=== PATIENT | male | born 1960 | race American Indian/Alaskan Native ===

== ENCOUNTER 2019-07-04 12:21 | Emergency (ER) | payer MEDICARE ==
[2019-07-04] MEDS ORDERED: ACETAMINOPHEN W/CODEINE 300-30 MG TAB PO ONE (14:42)
[2019-07-04] MEDS ORDERED: IBUPROFEN 800 MG TAB ONE (14:58)
[2019-07-04] MEDS ORDERED: IBUPROFEN 800 MG TAB PO ONE (15:01)
--- NOTE | 2019-07-04 15:20 | Emergency Department Report ---
Minor Respiratory - HPI Chief Complaint: Upper Respiratory Infection Stated Complaint: SOB Time Seen by Provider: 07/04/19 14:14 Duration: 4 Days Pain Location: Throat, Chest Severity: moderate Minor Respiratory: Yes Able to Tolerate Fluids, Yes Chest Pain, Yes Shortness of Breath, No Rhinorrhea, No Sore Throat, No Ear Pain, No Cough, No Sick Contacts, No Hemoptysis, No Fever Other History: This is a 59-year-old male with a history of congestive heart failure and hypertension who takes medication daily presents ED complaining of chest pain with coughing and some shortness of breath that worsens with laying down. Patient states that he was seen by his primary care doctor 2 days ago and was given some antibiotics which he is currently taking. Patient states he has had no relief with his antibiotics. ED Review of Systems ROS: Stated complaint: SOB Other details as noted in HPI Comment: All other systems reviewed and negative ED Past Medical Hx - Social History Smoking Status: Unknown if ever smoked Substance Use Type: None - Medications Home Medications: Home Medications Medication Instructions Recorded Confirmed Last Taken Type Bumetanide [Bumetanide 2 mg tab] 2 mg PO BID #20 tab 07/04/19 Unknown Rx Minor Respiratory Exam - Exam General: Vital signs noted. No distress. Alert and acting appropriately. HEENT: Yes Moist Mucous Membranes, No Pharyngeal Erythema, No Pharyngeal Exudates, No Rhinorrhea, No Conjuctival Injection, No Frontal Tenderness, No Maxillary Tenderness Ear: Neither TM Bulge, Neither TM Erythema, Neither EAC Pain, Neither EAC Discharge Neck: Yes Supple, No Adenopathy Lungs: Yes Good Air Exchange, No Wheezes, No Ronchi, No Stridor, No Cough, No Labored Respirations, No Retractions, No Use of Accessory Muscles, No Other Abn ormal Lung Sounds Heart: Yes Regular, No Murmur Abdomen: Yes Normal Bowel Sounds, No Tenderness, No Peritoneal Signs Skin: No Rash, No Edema Neurologic: Alert and oriented, no deficits. Musculoskeletal: Unremarkable. ED Course Vital Signs 07/04/19 15:02 Temperature 97.8 F Pulse Rate 98 H Respiratory 20 Rate Blood Pressure 144/99 O2 Sat by Pulse 98 Oximetry ED Medical Decision Making - Lab Data Result diagrams: 07/04/19 14:51 07/04/19 14:51 Laboratory Last Values WBC 3.8 K/mm3 (4.5-11.0) L 07/04/19 14:51 RBC 4.38 M/mm3 (3.65-5.03) 07/04/19 14:51 Hgb 14.3 gm/dl (11.8-15.2) 07/04/19 14:51 Hct 43.0 % (35.5-45.6) 07/04/19 14:51 MCV 98 fl (84-94) H 07/04/19 14:51 MCH 33 pg (28-32) H 07/04/19 14:51 MCHC 33 % (32-34) 07/04/19 14:51 RDW 12.5 % (13.2-15.2) L 07/04/19 14:51 Plt Count 138 K/mm3 (140-440) L 07/04/19 14:51 Lymph % (Auto) 29.0 % (13.4-35.0) 07/04/19 14:51 [place] % (Auto) 11.5 % (0.0-7.3) H 07/04/19 14:51 Eos % (Auto) 3.1 % (0.0-4.3) 07/04/19 14:51 Baso % (Auto) 0.6 % (0.0-1.8) 07/04/19 14:51 Lymph # 1.1 K/mm3 (1.2-5.4) L 07/04/19 14:51 [place] # 0.4 K/mm3 (0.0-0.8) 07/04/19 14:51 Eos # 0.1 K/mm3 (0.0-0.4) 07/04/19 14:51 Baso # 0.0 K/mm3 (0.0-0.1) 07/04/19 14:51 Seg Neutrophils % 55.8 % (40.0-70.0) 07/04/19 14:51 Seg Neutrophils # 2.1 K/mm3 (1.8-7.7) 07/04/19 14:51 Sodium 138 mmol/L (137-145) 07/04/19 14:51 Potassium 4.3 mmol/L (3.6-5.0) 07/04/19 14:51 Chloride 102.1 mmol/L (98-107) 07/04/19 14:51 Carbon Dioxide 21 mmol/L (22-30) L 07/04/19 14:51 Anion Gap 19 mmol/L 07/04/19 14:51 BUN 20 mg/dL (9-20) 07/04/19 14:51 Creatinine 1.1 mg/dL (0.8-1.5) 07/04/19 14:51 Estimated GFR > 60 ml/min 07/04/19 14:51 BUN/Creatinine Ratio 18 % 07/04/19 14:51 Glucose 160 mg/dL (75-100) H 07/04/19 14:51 Calcium 9.1 mg/dL (8.4-10.2) 07/04/19 14:51 Total Creatine Kinase 168 units/L (55-170) 07/04/19 16:45 Troponin T < 0.010 ng/mL (0.00-0.029) 07/04/19 16:45 NT-Pro-B Natriuret Pep 2140 pg/mL (0-900) H 07/04/19 15:40 - EKG Data EKG shows normal: sinus rhythm Rate: normal - EKG Data Interpretation: no acute changes, LVH, other (Probably left atrial enlargement) - Radiology Data Radiology results: report reviewed, image reviewed Fluoro Time In Minutes: CHEST 2 VIEWS INDICATION: pain. COMPARISON: None FINDINGS: Support devices: None. Heart: Mild cardiomegaly. Lungs/pleura: Mild pulmonary venous congestion. Trace pleural effusions are identified on the lateral image. No infiltrate or pneumothorax. Additional findings: None IMPRESSION: Mild CHF. Signer Name: Lei Heath Jr, MD Signed: 07/04/2019 3:30 PM Workstation Name: [id number] Transcribed By: TTR Dictated By: LEI HEATH JR, MD Electronically Authenticated By: LEI HEATH JR, MD Signed Date/Time: 07/04/19 1530 DD/ 1507 TD/TT: - Medical Decision Making 59-year-old male with a history of CHF presents with shortness of breath and chest pain. All labs were completed. Troponin negative CK negative proBNP elevated but this could be a normal elevation for the patient. Patient given Bumex IV in the ED. And some pain medication. Patient performing moderately better in the ED. Discussed with patient to take his Bumex at home regularly and take it twice leo ly for the next 3 days. Discussed patient to follow-up with primary care physician. I discussed with patient if he has any worsening pain or shortness of breath or any symptoms return to ED immediately. Case discussed with Dr. DEN Cruz attending physician who evaluated patient as well. He recommended patient to be discharged given lab findings and patient's symptoms not worsening. Critical care attestation.: If time is entered above; I have spent that time in minutes in the direct care of this critically ill patient, excluding procedure time. ED Disposition Clinical Impression: Acute dyspnea, History of congestive heart failure, Pleural effusion due to congestive heart failure Disposition: - TO HOME OR SELFCARE Is pt being admited?: No Does the pt Need Aspirin: No Condition: Stable Instructions: Heart Failure (ED), Dyspnea (ED) Additional Instructions: Make sure to follow up with the yarn texture machine operator as well as her primary care physician as discussed. Take all your medications as you've been prescribed. If you have any worsening symptoms or develop new symptoms please return to ED immediately. Prescriptions: Bumetanide [Bumetanide 2 mg tab] 2 mg PO BID #20 tab Referrals: SANAZ KENNY MD [Primary Care Provider] - 3-5 Days Forms: Accompanied Note, Work/School Release Form(ED) Time of Disposition: 17:56
[2019-07-04 15:23] LABS: BUN/Creatinine Ratio 18; Blood Urea Nitrogen 20 mg/dL (9-20); Calcium 9.1 mg/dL (8.4-10.2); Hemolysis Index 6
--- NOTE | 2019-07-04 15:35 | XRay Report ---
CHEST 2 VIEWS INDICATION: pain. COMPARISON: None FINDINGS: Support devices: None. Heart: Mild cardiomegaly. Lungs/pleura: Mild pulmonary venous congestion. Trace pleural effusions are identified on the lateral image. No infiltrate or pneumothorax. Additional findings: None IMPRESSION: Mild CHF. Signer Name: Lei Bunch Jr, MD Signed: 07/04/2019 3:30 PM Workstation Name: [id number]
[2019-07-04 15:42] LABS: Basophils % (Auto) 0.6 % (0.0-1.8); Eosinophils # (Auto) 0.1 K/mm3 (0.0-0.4); Eosinophils % (Auto) 3.1 % (0.0-4.3); Hemoglobin 14.3 gm/dl (11.8-15.2); Lymphocytes # (Auto) 1.1 K/mm3 (1.2-5.4); Mean Corpuscular HGB Conc 33 % (32-34); Mean Corpuscular Volume 98 fl (84-94); Monocytes # (Auto) 0.4 K/mm3 (0.0-0.8); Monocytes % (Auto) 11.5 % (0.0-7.3); Platelet Count 138 K/mm3 (140-440); Red Blood Count 4.38 M/mm3 (3.65-5.03); Red Cell Distribution Width 12.5 % (13.2-15.2)
[2019-07-04] MEDS ORDERED: BUMETANIDE 1 MG/4 ML INJ IV ONE ×2 (16:56→17:00)
--- NOTE | 2019-07-04 17:04 | Event Note ---
Face to Face: For this encounter I have reviewed the PA/HIGHWAY TECHNICIAN documentation, treatment plan, medical decision making, and I had face to face time with this patient. I did have a [id number] with this patient. Patient has some mild shortness of breath and chest discomfort. States the chest discomfort usually is only when he is fluid overloaded. Shortness of breath is exertional. He denies any current fevers. Chest x-ray shows some pulmonary vascular congestion and cardiomegaly. Patient admits that he only uses his Bumex when his leg swelling he feels as though he is overloaded. He was able to take 1 but states that the symptoms continued to progress. Patient will be given some IV Bumex and will be monitored here in the emergency department. I anticipate patient being discharged home.
[2019-07-04 18:44] VITALS: BP 143/92
== END 2019-07-04 18:42 | disposition home or self-care (01) ==
LOC: ED 12:21
DX: R06.00 Dyspnea, unspecified (principal); I50.9 Heart failure, unspecified; J90 Pleural effusion, not elsewhere classified; Z88.6 Allergy status to analgesic agent; Z88.0 Allergy status to penicillin
CPT/HCPCS: 36415; 71046; 80048; 82550; 83880; 84484; 85025; 93005; 93010; 96374

== ENCOUNTER 2019-12-20 22:55 | Inpatient (IN) | payer MEDICARE ==
[2019-12-20] MEDS ORDERED: FUROSEMIDE 40 MG/4 ML INJ IV ONE (22:58)
[2019-12-20] MEDS ORDERED: NITROGLYCERIN DRIP 50 MG/250 ML BOTTLE IV SCH (23:00)
--- NOTE | 2019-12-20 23:37 | XRay Report ---
CHEST 1 VIEW, 12/20/2019 10:17 PM CLINICAL INFORMATION/INDICATION: Respiratory distress COMPARISON: Chest radiograph, 07/04/2019 FINDINGS: SUPPORT DEVICES: None. HEART: There is stable moderate enlargement of the cardiac silhouette. LUNGS/PLEURA: Diffuse bilateral mixed interstitial and airspace disease is noted with probable small bilateral pleural effusions. ADDITIONAL FINDINGS: No additional acute findings. IMPRESSION: 1. Mixed interstitial and airspace disease favored to represent pulmonary edema with probable small b ilateral pleural effusions. 2. Stable enlargement of the cardiac silhouette. Signer Name: Chichi Rubi MD Signed: 12/20/2019 11:32 PM Workstation Name: [id number]
[2019-12-21 00:22] LABS: Bacteria,Urine 1+ /HPF (Negative); Bilirubin,Urine NEG (Negative); Blood,Urine MOD (Negative); Color,Urine Yellow (Yellow); Mucus,Urine 2+ /HPF; Urobilinogen,Urine < 2.0 mg/dL (<2.0)
[2019-12-21 00:26] LABS: Albumin 4.4 g/dL (3.9-5); Calcium 9.4 mg/dL (8.4-10.2)
[2019-12-21 00:32] LABS: Basophils # (Auto) 0.1 K/mm3 (0.0-0.1); Basophils % (Auto) 1.1 % (0.0-1.8); Eosinophils # (Auto) 0.1 K/mm3 (0.0-0.4); Eosinophils % (Auto) 1.8 % (0.0-4.3); Hematocrit 44.7 % (35.5-45.6); Hemoglobin 15.1 gm/dl (11.8-15.2); Lymphocytes # (Auto) 1.5 K/mm3 (1.2-5.4); Lymphocytes % (Auto) 32.6 % (13.4-35.0); Mean Corpuscular HGB Conc 34 % (32-34); Mean Corpuscular Volume 98 fl (84-94); Monocytes # (Auto) 0.3 K/mm3 (0.0-0.8); Monocytes % (Auto) 6.5 % (0.0-7.3); Platelet Count 159 K/mm3 (140-440); Red Blood Count 4.57 M/mm3 (3.65-5.03); Red Cell Distribution Width 12.8 % (13.2-15.2)
--- NOTE | 2019-12-21 00:47 | Emergency Department Report ---
ED General Adult HPI - General Chief complaint: Dyspnea/Respdistress Stated complaint: MARIALUISA Time Seen by Provider: 12/20/19 22:56 Source: patient, EMS Mode of arrival: Stretcher Limitations: No Limitations - History of Present Illness Initial comments: Patient is a 59-year-old F Luxembour[place] male with a past medical history of congestive heart failure with shortness of breath. Patient is a poor historian secondary to being in respiratory distress. Patient is only able to shake his head yes or no. Patient does acknowledge that he became short of breath today. States he has been compliant with his medications. Patient states he has not been compliant with his diet and has had salty food in the last several days. Paramedics were called and the patient was in tripod position and was hypoxic into the 80s. Patient was started on CPAP and brought to the hospital. Severity scale (0 -10): 0 - Related Data Previous Rx's Medication Instructions Recorded Last Taken Type Bumetanide [Bumetanide 2 mg tab] 2 mg PO BID #20 tab 07/04/19 Unknown Rx Allergies Allergy/AdvReac Type Severity Reaction Status Date / Time codeine Allergy Unknown Verified 07/04/19 14:55 meperidine [From Demerol] Allergy Swelling Verified 07/04/19 14:55 Penicillins Allergy Swelling Verified 07/04/19 14:55 ED Review of Systems ROS: Stated complaint: MARIALUISA Other details as noted in HPI Comment: All other systems reviewed and negative ED Past Medical Hx - Past Medical History Previous Medical History?: Yes Hx Hypertension: Yes Hx Congestive Heart Failure: Yes Hx COPD: Yes Additional medical history: High Cholesterol, Sleep Apnea - Social History Smoking Status: Never Smoker - Medications Home Medications: Home Medications Medication Instructions Recorded Confirmed Last Taken Type Bumetanide [Bumetanide 2 mg tab] 2 mg PO BID #20 tab 07/04/19 Unknown Rx ED Physical Exam - General Limitations: No Limitations General appearance: alert, in distress - Head Head exam: Present: atraumatic, normocephalic - Eye Eye exam: Present: normal appearance, PERRL, EOMI - ENT ENT exam: Present: mucous membranes moist - Neck Neck exam: Present: normal inspection - Respiratory Respiratory exam: Present: respiratory distress, rales, rhonchi, accessory mus roxy use, other (tripod position). Absent: normal lung sounds bilaterally, wheezes - Cardiovascular Cardiovascular Exam: Present: normal rhythm, tachycardia. Absent: systolic murmur, diastolic murmur, rubs, gallop - GI/Abdominal GI/Abdominal exam: Present: soft, normal bowel sounds. Absent: distended, tenderness, guarding, rebound - Rectal Rectal exam: Present: deferred - Extremities Exam Extremities exam: Present: normal inspection, other (+1 briana) - Back Exam Back exam: Present: normal inspection - Neurological Exam Neurological exam: Present: alert, oriented X3 - Psychiatric Psychiatric exam: Present: normal affect, normal mood - Skin Skin exam: Present: warm, dry, intact, normal color. Absent: rash ED Course Vital Signs 12/20/19 12/20/19 12/20/19 23:19 23:31 23:38 Temperature 98.2 F Pulse Rate 93 H Respiratory 20 22 22 Rate Blood Pressure 132/83 [Right] O2 Sat by Pulse 100 98 98 Oximetry 12/21/19 00:23 Temperature Pulse Rate 77 Respiratory 20 Rate Blood Pressure 92/61 [Right] O2 Sat by Pulse 94 Oximetry ED Medical Decision Making - Lab Data Result diagrams: 12/20/19 23:07 12/21/19 Unknown Lab Results 12/20/19 12/20/19 12/20/19 Range/Units 23:07 23:07 23:07 WBC 4.5 (4.5-11.0) K/mm3 RBC 4.57 (3.65-5.03) M/mm3 Hgb 15.1 (11.8-15.2) gm/dl Hct 44.7 (35.5-45.6) % MCV 98 H (84-94) fl MCH 33 H (28-32) pg MCHC 34 (32-34) % RDW 12.8 L (13.2-15.2) % Plt Count 159 (140-440) K/mm3 Lymph % (Auto) 32.6 (13.4-35.0) % [place] % (Auto) 6.5 (0.0-7.3) % Eos % (Auto) 1.8 (0.0-4.3) % Baso % (Auto) 1.1 (0.0-1.8) % Lymph # 1.5 (1.2-5.4) K/mm3 [place] # 0.3 (0.0-0.8) K/mm3 Eos # 0.1 (0.0-0.4) K/mm3 Baso # 0.1 (0.0-0.1) K/mm3 Seg Neutrophils % 58.0 (40.0-70.0) % Seg Neutrophils # 2.6 (1.8-7.7) K/mm3 APTT 27.7 (24.2-36.6) Sec. Sodium (137-145) mmol/L Potassium (3.6-5.0) mmol/L Chloride (98-107) mmol/L Carbon Dioxide (22-30) mmol/L Anion Gap mmol/L BUN (9-20) mg/dL Creatinine (0.8-1.3) mg/dL Estimated GFR ml/min BUN/Creatinine Ratio % Glucose (75-100) mg/dL Lactic Acid (0.7-2.0) mmol/L Calcium (8.4-10.2) mg/dL Total Bilirubin (0.1-1.2) mg/dL AST (5-40) units/L ALT (7-56) units/L Alkaline Phosphatase (35-129) units/L Troponin T (0.00-0.029) ng/mL NT-Pro-B Natriuret Pep 5920 H (0-900) pg/mL Total Protein (6.3-8.2) g/dL Albumin (3.9-5) g/dL Albumin/Globulin Ratio % Urine Color (Yellow) Urine Turbidity (Clear) Urine pH (5.0-7.0) Ur Specific [place] (1.003-1.030) Urine Protein (Negative) mg/dL Urine Glucose (UA) (Negative) mg/dL Urine Ketones (Negative) mg/dL Urine Blood (Negative) Urine Nitrite (Negative) Urine Bilirubin (Negative) Urine Urobilinogen (<2.0) mg/dL Ur Leukocyte Esterase (Negative) Urine WBC (Auto) (0.0-6.0) /HPF Urine RBC (Auto) (0.0-6.0) /HPF U Epithel Cells (Auto) (0-13.0) /HPF Urine Bacteria (Auto) (Negative) /HPF Urine Mucus /HPF 12/21/19 12/21/19 12/21/19 Range/Units Unknown Unknown Unknown WBC (4.5-11.0) K/mm3 RBC (3.65-5.03) M/mm3 Hgb (11.8-15.2) gm/dl Hct (35.5-45.6) % MCV (84-94) fl MCH (28-32) pg MCHC (32-34) % RDW (13.2-15.2) % Plt Count (140-440) K/mm3 Lymph % (Auto) (13.4-35.0) % [place] % (Auto) (0.0-7.3) % Eos % (Auto) (0.0-4.3) % Baso % (Auto) (0.0-1.8) % Lymph # (1.2-5.4) K/mm3 [place] # (0.0-0.8) K/mm3 Eos # (0.0-0.4) K/mm3 Baso # (0.0-0.1) K/mm3 Seg Neutrophils % (40.0-70.0) % Seg Neutrophils # (1.8-7.7) K/mm3 APTT (24.2-36.6) Sec. Sodium 139 (137-145) mmol/L Potassium 3.9 (3.6-5.0) mmol/L Chloride 100.9 (98-107) mmol/L Carbon Dioxide 19 L (22-30) mmol/L Anion Gap 23 mmol/L BUN 25 H (9-20) mg/dL Creatinine 1.6 H (0.8-1.3) mg/dL Estimated GFR 53 ml/min BUN/Creatinine Ratio 16 % Glucose 246 H (75-100) mg/dL Lactic Acid 3.20 H* (0.7-2.0) mmol/L Calcium 9.4 (8.4-10.2) mg/dL Total Bilirubin 0.50 (0.1-1.2) mg/dL AST 24 (5-40) units/L ALT 14 (7-56) units/L Alkaline Phosphatase 64 (35-129) units/L Troponin T 0.022 (0.00-0.029) ng/mL NT-Pro-B Natriuret Pep (0-900) pg/mL Total Protein 8.2 (6.3-8.2) g/dL Albumin 4.4 (3.9-5) g/dL Albumin/Globulin Ratio 1.2 % Urine Color Yellow (Yellow) Urine Turbidity Clear (Clear) Urine pH 5.0 (5.0-7.0) Ur Specific [place] 1.016 (1.003-1.030) Urine Protein 100 mg/dl (Negative) mg/dL Urine Glucose (UA) Neg (Negative) mg/dL Urine Ketones Neg (Negative) mg/dL Urine Blood Mod (Negative) Urine Nitrite Neg (Negative) Urine Bilirubin Neg (Negative) Urine Urobilinogen < 2.0 (<2.0) mg/dL Ur Leukocyte Esterase Neg (Negative) Urine WBC (Auto) 1.0 (0.0-6.0) /HPF Urine RBC (Auto) 3.0 (0.0-6.0) /HPF U Epithel Cells (Auto) < 1.0 (0-13.0) /HPF Urine Bacteria (Auto) 1+ (Negative) /HPF Urine Mucus 2+ /HPF - Radiology Data [facility] [address] [place] [address] XRay Report Signed Patient: CATALINA BARTON MR#: [id number] : 1960 Acct:[id number] Age/Sex: 59 / M ADM Date: 12/20/19 Loc: ED Attending Dr: Ordering Physician: MUKUL BALLARD MD Date of Service: 12/20/19 Procedure(s): XR chest 1V ap Accession Number(s): [id number] cc: MUKUL BALLARD MD Fluoro Time In Minutes: CHEST 1 VIEW, 12/20/2019 10:17 PM CLINICAL INFORMATION/INDICATION: Respiratory distress COMPARISON: Chest radiograph, 07/04/2019 FINDINGS: SUPPORT DEVICES: None. HEART: There is stable moderate enlargement of the cardiac silhouette. LUNGS/PLEURA: Diffuse bilateral mixed interstitial and airspace disease is noted with probable small bilateral pleural effusions. ADDITIONAL FINDINGS: No additional acute findings. IMPRESSION: 1. Mixed interstitial and airspace disease favored to represent pulmonary edema with probable small bilateral pleural effusions. 2. Stable enlargement of the cardiac silhouette. Signer Name: Chichi Rubi MD Signed: 12/20/2019 11:32 PM Workstation Name: [id number] - Medical Decision Making Patient is a 59-year-old F Luxembour[place] male who is presenting respiratory distress. Paramedics were worried that the patient may need to be intubated on arrival. Patient is stated that he wanted to try BiPAP. Patient was placed on BiPAP and started on a nitroglycerin drip. Blood pressure was elevated in the 170s systolic. Blood pressure decreased and the patient states he is feeling much improved by the time that the patient's laboratory studies returned. Laboratory studies are consistent with a congestive heart failure exacerbation. Patient's BNP is elevated. Troponin is within normal limits. Patient will be admitted to the hospitalist service for further management. Critical Care Time: Yes (30) Critical care attestation.: If time is entered above; I have spent that time in minutes in the direct care of this critically ill patient, excluding procedure time. ED Disposition Clinical Impression: Acute exacerbation of congestive heart failure, Acute respiratory distress Disposition: OP ADMIT IP TO THIS HOSP Is pt being admited?: Yes Does the pt Need Aspirin: No Condition: Stable Time of Disposition: 00:54
[2019-12-21] MEDS ORDERED: ONDANSETRON 4 MG/2 ML INJ IV PRN (01:18)
[2019-12-21] MEDS ORDERED: MAGNESIUM HYDROXIDE (MOM) ORAL LIQD UDC PO PRN (01:18)
--- NOTE | 2019-12-21 01:31 | History and Physical Report ---
History of Present Illness Date of examination: 12/21/19 Date of admission: 12/21/2019 Chief complaint: Shortness of Breath History of present illness: Patient is a 59-year-old -Filipino male with known history of congestive heart failure presenting to the emergency room today with shortness of breath. Patient was brought in by EMS because he was in respiratory distress and was said to have been found in the tripod position.. He denies any chest pain, no fever or chills, no nausea vomiting, no abdominal pain, no diarrhea, no headache or dizziness. He denies any sick contacts and no recent travel. Patient admits that he has not been quite compliant with his diet as he has been eating some salty foods over the past few days. He however indicates that he has been compliant with his medications. Patient could not give a very good history because he was in distress. Work-up in the emergency room today reveals pulmonary vascular congestion on the chest x-ray, elevated BNP, patient also has some renal insufficiency. He was tachycardic and hypertensive upon arrival in the emergency room. He was placed on BiPAP and also on nitroglycerin drip. He was diuresed with IV Lasix with some improvement in his shortness of breath. Past History Past Medical History: COPD, heart failure, hypertension, hyperlipidemia, other (Sleep Apnea) Past Surgical History: No surgical history Social history: no significant social history Family history: no significant family history Medications and Allergies Allergies Allergy/AdvReac Type Severity Reaction Status Date / Time codeine Allergy Unknown Verified 07/04/19 14:55 meperidine [From Demerol] Allergy Swelling Verified 07/04/19 14:55 Penicillins Allergy Swelling Verified 07/04/19 14:55 Home Medications Medication Instructions Recorded Confirmed Last Taken Type Bumetanide [Bumetanide 2 mg tab] 2 mg PO BID #20 tab 07/04/19 12/21/19 Unknown Rx Metoprolol [Lopressor] 25 mg PO DAILY 12/21/19 12/21/19 Unknown History Valsartan 80 mg PO DAILY 12/21/19 12/21/19 Unknown History Active Meds: Active Medications Furosemide (Lasix) 40 mg IV BID@0600,1800 CHELI Nitroglycerin/Dextrose (Tridil Drip 50mg/250ml) 50 mg in 250 mls @ 3 mls/hr IV TITR CHELI; Protocol Last Admin: 12/20/19 23:40 Dose: 10 mcg/min, 3 mls/hr Documented by: Magnesium Hydroxide (Milk Of Magnesia) 30 ml PO Q4H PRN PRN Reason: Constipation Ondansetron HCl (Zofran) 4 mg IV Q8H PRN PRN Reason: Nausea And Vomiting Sodium Chloride (Sodium Chloride Flush Syringe 10 Ml) 10 ml IV BID CHELI Sodium Chloride (Sodium Chloride Flush Syringe 10 Ml) 10 ml IV PRN PRN PRN Reason: LINE FLUSH Review of Systems Constitutional: no fever, no chills Ears, nose, mouth and throat: no nasal congestion, no sore throat Cardiovascular: no chest pain, no palpitations Respiratory: shortness of breath, no cough Gastrointestinal: no nausea, no vomiting, no diarrhea Genitourinary Male: no dysuria, no hematuria, no flank pain Musculoskeletal: no neck pain, no low back pain Integumentary: no rash, no pruritis Neurological: no headaches, no confusion Psychiatric: no anxiety, no depression Exam - Constitutional Vitals: Temp Pulse Resp BP Pulse Ox 98.2 F 77 20 92/61 94 12/20/19 23:31 12/21/19 00:23 12/21/19 00:23 12/21/19 00:23 12/21/19 00:23 General appearance: Present: mild distress, well-nourished, obese - EENT Eyes: Present: PERRL, EOM intact ENT: hearing intact, clear oral mucosa, dentition normal - Neck Neck: Present: supple, normal ROM - Respiratory Respiratory effort: normal Respiratory: bilateral: rales - Cardiovascular Rhythm: regular Heart Sounds: Present: S1 & S2. Absent: gallop, systolic murmur, diastolic murmur, rub - Extremities Extremities: no ischemia, pulses intact, pulses symmetrical, No edema, Full ROM Peripheral Pulses: within normal limits - Abdominal General gastrointestinal: Present: soft, non-tender, non-distended, normal bowel sounds. Absent: mass - Integumentary Integumentary: Present: clear, warm, dry. Absent: rash - Musculoskeletal Musculoskeletal: strength equal bilaterally - Psychiatric Psychiatric: appropriate mood/affect, intact judgment & insight, memory intact, cooperative - Neurologic Neurologic: CNII-XII intact, no focal deficits, moves all extremities HEART Score - HEART Score Troponin: Troponin T 0.022 ng/mL (0.00-0.029) 12/21/19 Unknown Results - Labs CBC & Chem 7: 12/20/19 23:07 12/21/19 Unknown Labs: Abnormal lab results 12/20/19 12/20/19 12/21/19 Range/Units 23:07 23:07 Unknown MCV 98 H (84-94) fl MCH 33 H (28-32) pg RDW 12.8 L (13.2-15.2) % Carbon Dioxide 19 L (22-30) mmol/L BUN 25 H (9-20) mg/dL Creatinine 1.6 H (0.8-1.3) mg/dL Glucose 246 H (75-100) mg/dL Lactic Acid (0.7-2.0) mmol/L NT-Pro-B Natriuret Pep 5920 H (0-900) pg/mL 12/21/19 Range/Units Unknown MCV (84-94) fl MCH (28-32) pg RDW (13.2-15.2) % Carbon Dioxide (22-30) mmol/L BUN (9-20) mg/dL Creatinine (0.8-1.3) mg/dL Glucose (75-100) mg/dL Lactic Acid 3.20 H* (0.7-2.0) mmol/L NT-Pro-B Natriuret Pep (0-900) pg/mL Assessment and Plan - Patient Problems (1) Acute exacerbation of congestive heart failure Current Visit: Yes Status: Acute Plan to address problem: Patient admitted and placed on IV diuretics. We will monitor inputs and outputs and also monitor daily weights. Patient will be scheduled for echocardiogram in the a.m. Compliance with diet and medications has been encouraged (2) Renal insufficiency Current Visit: Yes Status: Acute Plan to address problem: There has been an increase in his BUN and creatinine from his previous studies. Will monitor BUN and creatinine. We will place a consult to nephrology for further evaluation and recommendation. (3) DVT prophylaxis Current Visit: Yes Status: Acute (4) Full code status Current Visit: Yes Status: Acute
[2019-12-21] MEDS: FUROSEMIDE 40 MG/4 ML INJ IV SCH (06:52)
--- NOTE | 2019-12-21 10:24 | Consultation ---
History of Present Illness Consult date: 12/21/19 Consult reason: congestive heart failure History of present illness: 59-year-old -[place]ian male with a history of congestive heart failure who normally sees a swatch checker at the [facility] presents today with shortness of breath. Patient states that his been under a lot of stress as his is ill on hospice at home. He denies any chest pains. He was found to have mild interstitial pulmonary edema and has responded to IV diuresing. At the time of my evaluation patient is comfortable but still complains about mild wheezing but no chest pain. Past History Past Medical History: COPD, heart failure, hypertension, hyperlipidemia, other (Sleep Apnea) Past Surgical History: No surgical history Social history: no significant social history Family history: no significant family history Medications and Allergies Allergies Allergy/AdvReac Type Severity Reaction Status Date / Time codeine Allergy Unknown Verified 07/04/19 14:55 meperidine [From Demerol] Allergy Swelling Verified 07/04/19 14:55 Penicillins Allergy Swelling Verified 07/04/19 14:55 Home Medications Medication Instructions Recorded Confirmed Last Taken Type Bumetanide [Bumetanide 2 mg tab] 2 mg PO BID #20 tab 07/04/19 12/21/19 Unknown Rx Metoprolol [Lopressor] 25 mg PO DAILY 12/21/19 12/21/19 Unknown History Valsartan 80 mg PO DAILY 12/21/19 12/21/19 Unknown History Active Meds: Active Medications Furosemide (Lasix) 40 mg IV BID@0600,1800 [facility] Last Admin: 12/21/19 06:52 Dose: 40 mg Documented by: Nitroglycerin/Dextrose (Tridil Drip 50mg/250ml) 50 mg in 250 mls @ 3 mls/hr IV TITR CHELI; Protocol Last Titration: 12/21/19 06:46 Dose: 0 mcg/min, 0 mls/hr Documented by: Magnesium Hydroxide (Milk Of Magnesia) 30 ml PO Q4H PRN PRN Reason: Constipation Ondansetron HCl (Zofran) 4 mg IV Q8H PRN PRN Reason: Nausea And Vomiting Sodium Chloride (Sodium Chloride Flush Syringe 10 Ml) 10 ml IV BID [facility] Last Admin: 12/21/19 09:12 Dose: 10 ml Documented by: Sodium Chloride (Sodium Chloride Flush Syringe 10 Ml) 10 ml IV PRN PRN PRN Reason: LINE FLUSH Review of Systems Constitutional: no weight loss, no fever, no chills, no sweats, no anorexia, no fatigue, no weakness Ears, nose, mouth and throat: no ear pain, no ear discharge, no tinnitis, no nose pain, no epistaxis, no dental pain, no mouth pain Cardiovascular: shortness of breath, dyspnea on exertion, no orthopnea, no palpitations, no edema Respiratory: shortness of breath, sleep apnea, no cough, no congestion, no wheezing Gastrointestinal: no abdominal pain, no nausea, no vomiting, no diarrhea, no melena, no hematochezia Genitourinary Male: no dysuria, no hematuria, no flank pain Musculoskeletal: no neck stiffness, no neck pain, no low back pain, no shooting leg pain Integumentary: no rash, no pruritis Neurological: no head injury, no transient paralysis, no paralysis, no weakness, no parathesias, no seizures Psychiatric: no anxiety, no memory loss Endocrine: no cold intolerance, no heat intolerance, no polydipsia, no polyuria Hematologic/Lymphatic: no easy bruising, no easy bleeding Allergic/Immunologic: no urticaria, no allergic rhinitis, no wheezing Physical Examination Vital Signs Resp Pulse Ox 20 100 12/20/19 23:19 12/20/19 23:19 General appearance: no acute distress, obese HEENT: Positive: PERRL, Mucus Membranes Moist Neck: Positive: neck supple, trachea midline, JVD/HJR Cardiac: Positive: Regular Rate, S1/S2, S3, PMI, Dilated, Laterally Displaced Lungs: Positive: clear to auscultation, No Wheeze, Rales, Rhonchi Neuro: Positive: Grossly Intact Abdomen: Positive: Unremarkable, Soft Skin: Positive: Rash Extremities: Absent: edema Results 12/20/19 23:07 12/21/19 Unknown Cardiac Enzymes 12/21/19 Range/Units Unknown AST 24 (5-40) units/L Coagulation 12/20/19 Range/Units 23:07 APTT 27.7 (24.2-36.6) Sec. CBC 12/20/19 Range/Units 23:07 WBC 4.5 (4.5-11.0) K/mm3 RBC 4.57 (3.65-5.03) M/mm3 Hgb 15.1 (11.8-15.2) gm/dl Hct 44.7 (35.5-45.6) % Plt Count 159 (140-440) K/mm3 Lymph # 1.5 (1.2-5.4) K/mm3 [place] # 0.3 (0.0-0.8) K/mm3 Eos # 0.1 (0.0-0.4) K/mm3 Baso # 0.1 (0.0-0.1) K/mm3 Comprehensive Metabolic Panel 12/21/19 Range/Units Unknown Sodium 139 (137-145) mmol/L Potassium 3.9 (3.6-5.0) mmol/L Chloride 100.9 (98-107) mmol/L Carbon Dioxide 19 L (22-30) mmol/L BUN 25 H (9-20) mg/dL Creatinine 1.6 H (0.8-1.3) mg/dL Glucose 246 H (75-100) mg/dL Calcium 9.4 (8.4-10.2) mg/dL AST 24 (5-40) units/L ALT 14 (7-56) units/L Alkaline Phosphatase 64 (35-129) units/L Total Protein 8.2 (6.3-8.2) g/dL Albumin 4.4 (3.9-5) g/dL EKG interpretations - Telemetry EKG Rhythm: Sinus Rhythm - EKG Sinus rhythms and dysrhythmias: sinus rhythm Ventricular dysrhythmias: ventricular premature com Assessment and Plan 1. 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 2. Dilated cardiomyopathy 3. Nonobstructive coronary artery disease 4. Essential hypertension 5. Chronic obstructive pulmonary disease 6. Hyperlipidemia 7. Sleep apnea 8. Renal insufficiency Plan. Patient is currently stable chest x-ray shows mild interstitial edema with pulmonary vascular congestion patient's BNP is elevated with evidence of mild renal insufficiency. Patient sees a swatch checker at [facility] he states his last echo showed an ejection fraction of 20% and cardiac catheterization done 2019 showed nonobstructive coronary artery disease not requiring stenting or coronary artery bypass. Patient will have a repeat echocardiogram done we shall resume his home medication continue IV diuresing discharge home in 24 to 48 hours.
--- NOTE | 2019-12-21 11:35 | Consultation ---
History of Present Illness - Reason for Consult Consult date: 12/21/19 acute renal failure - History of Present Illness patient with known PMH of CHF was admitted yesterday for worsening SOB, he was found to have pulm edema on CXR and was started IV diuretcis, initially he required BIPAP and nitro gtt but when seen he was breathing comfortably on room air. he was noted to have abnormal Cr and renal consult was requested Past History Past Medical History: COPD, heart failure, hypertension, hyperlipidemia, other (Sleep Apnea) Past Surgical History: No surgical history Social history: no significant social history Family history: no significant family history Medications and Allergies Allergies Allergy/AdvReac Type Severity Reaction Status Date / Time codeine Allergy Unknown Verified 07/04/19 14:55 meperidine [From Demerol] Allergy Swelling Verified 07/04/19 14:55 Penicillins Allergy Swelling Verified 07/04/19 14:55 Home Medications Medication Instructions Recorded Confirmed Last Taken Type Bumetanide [Bumetanide 2 mg tab] 2 mg PO BID #20 tab 07/04/19 12/21/19 Unknown Rx Metoprolol [Lopressor] 25 mg PO DAILY 12/21/19 12/21/19 Unknown History Valsartan 80 mg PO DAILY 12/21/19 12/21/19 Unknown History Active Meds: Active Medications Furosemide (Lasix) 40 mg IV BID@0600,1800 [facility] Last Admin: 12/21/19 06:52 Dose: 40 mg Documented by: Nitroglycerin/Dextrose (Tridil Drip 50mg/250ml) 50 mg in 250 mls @ 3 mls/hr IV TITR [facility]; Protocol Last Titration: 12/21/19 06:46 Dose: 0 mcg/min, 0 mls/hr Documented by: Magnesium Hydroxide (Milk Of Magnesia) 30 ml PO Q4H PRN PRN Reason: Constipation Ondansetron HCl (Zofran) 4 mg IV Q8H PRN PRN Reason: Nausea And Vomiting Sodium Chloride (Sodium Chloride Flush Syringe 10 Ml) 10 ml IV BID [facility] Last Admin: 12/21/19 09:12 Dose: 10 ml Documented by: Sodium Chloride (Sodium Chloride Flush Syringe 10 Ml) 10 ml IV PRN PRN PRN Reason: LINE FLUSH Review of Systems All systems: negative (SOB) Exam - Vital Signs Vital signs: Vital Signs Resp Pulse Ox 20 100 12/20/19 23:19 12/20/19 23:19 - General Appearance General appearance: well-developed, well-nourished EENT: ATNC, PERRL, mucous membranes moist Neck: Present: neck supple Respiratory: Decreased Breath Sounds Heart: regular, S1S2 Gastrointestinal: Present: normoactive bowel sounds Integumentary: no rash, warm and dry Neurologic: no focal deficit, no asterixis, alert and oriented x3 Musculoskeletal: Present: other (no edema in BLE) Psychiatric: mood/affect appropriate, cooperative Results - Lab Results 12/20/19 23:07 12/21/19 Unknown Most recent lab results Calcium 9.4 mg/dL (8.4-10.2) 12/21/19 Unknown Assessment and Plan acute renal failure, likely CRS acute on chronic CHF Hypertension Pulm edema cont lasix at current dose will check urine lytes, protein and eos will check renal US renally dose meds strict I&O daily weight Raul june MD [phone]
--- NOTE | 2019-12-21 12:44 | Consultation ---
History of Present Illness Consult date: 12/21/19 Requesting physician: WINSTON BOWERS Reason for consult: other (Acute CHF exacerbation) History of present illness: PULMONARY/CCM CONSULT NOTE (Full dictation # [id number]) Please see dictated notes for full details Past History Past Medical History: COPD, heart failure, hypertension, hyperlipidemia, other (Sleep Apnea) Past Surgical History: No surgical history Social history: no significant social history Family history: no significant family history Medications and Allergies Allergies Allergy/AdvReac Type Severity Reaction Status Date / Time codeine Allergy Unknown Verified 07/04/19 14:55 meperidine [From Demerol] Allergy Swelling Verified 07/04/19 14:55 Penicillins Allergy Swelling Verified 07/04/19 14:55 Home Medications Medication Instructions Recorded Confirmed Last Taken Type Bumetanide [Bumetanide 2 mg tab] 2 mg PO BID #20 tab 07/04/19 12/21/19 Unknown Rx Metoprolol [Lopressor] 25 mg PO DAILY 12/21/19 12/21/19 Unknown History Valsartan 80 mg PO DAILY 12/21/19 12/21/19 Unknown History Active Meds: Active Medications Furosemide (Lasix) 40 mg IV BID@0600,1800 [facility] Last Admin: 12/21/19 06:52 Dose: 40 mg Documented by: Nitroglycerin/Dextrose (Tridil Drip 50mg/250ml) 50 mg in 250 mls @ 3 mls/hr IV TITR [facility]; Protocol Last Titration: 12/21/19 06:46 Dose: 0 mcg/min, 0 mls/hr Documented by: Magnesium Hydroxide (Milk Of Magnesia) 30 ml PO Q4H PRN PRN Reason: Constipation Ondansetron HCl (Zofran) 4 mg IV Q8H PRN PRN Reason: Nausea And Vomiting Sodium Chloride (Sodium Chloride Flush Syringe 10 Ml) 10 ml IV BID [facility] Last Admin: 12/21/19 09:12 Dose: 10 ml Documented by: Sodium Chloride (Sodium Chloride Flush Syringe 10 Ml) 10 ml IV PRN PRN PRN Reason: LINE FLUSH Physical Examination Vital signs: Vital Signs Resp Pulse Ox 20 100 12/20/19 23:19 12/20/19 23:19 Results - Laboratory Findings CBC and BMP: 12/20/19 23:07 12/21/19 Unknown Abnormal lab findings: Abnormal Labs 12/20/19 12/20/19 12/21/19 23:07 23:07 05:49 MCV 98 H MCH 33 H RDW 12.8 L Carbon Dioxide BUN Creatinine Glucose Lactic Acid 2.20 H* NT-Pro-B Natriuret Pep 5920 H 12/21/19 12/21/19 12/21/19 09:25 Unknown Unknown MCV MCH RDW Carbon Dioxide 19 L BUN 25 H Creatinine 1.6 H Glucose 246 H Lactic Acid 2.70 H* 3.20 H* NT-Pro-B Natriuret Pep
[2019-12-21] MEDS ORDERED: MORPHINE 2 MG/1 ML INJ IV PRN (13:35)
--- NOTE | 2019-12-21 14:33 | Consultation ---
PULMONARY CRITICAL CARE CONSULTATION NOTE CONSULTING PHYSICIAN: Dr. Munoz. REASON FOR CONSULTATION: Apparently congestive heart failure, hypertensive urgency. CHIEF COMPLAINT AND HISTORY OF PRESENT ILLNESS: As follows: The patient is a 59-year-old morbidly obese, -[place] Citizen male with past medical history significant amongst other things for a diagnosis of congestive heart failure for which he is on diuretics at home as well as obstructive sleep apnea, who was brought into the Emergency Room with respiratory distress. He was found in the tripod position. He had denied chest pains. He had denied fevers or chills. Denied nausea, vomiting, abdominal pain. He denied constipation. He denied new onset leg pain or swelling either unilaterally or bilaterally. He states he has been compliant with his diuretics. He states he has been going through some issues at home of late and perhaps was thinking a lot. He admits to taking more fluids than he normally would in the preceding few days also. In the Emergency Room, he was evaluated, found to be in severe pulmonary edema, elevated blood pressure, was started on a Tridil drip, brought into the Critical Care Unit. When I stopped by to see him, he was doing much better. He was off the Tridil drip. He was on room air. He denied nausea, vomiting, or overt aspiration. He states he is on his home CPAP machine at 8 cm pressure and uses it religiously. This really is as much of the history of presentation as I have. I should mention he denies any history of tobacco use or abuse. PAST MEDICAL HISTORY: COPD, congestive heart failure, hypertension, hyperlipidemia, obstructive sleep apnea, morbid obesity. PAST SURGICAL HISTORY: He denies. MEDICATIONS: He was on at the time I stopped by to see him, according to the medication administration record included the following: Lasix 40 mg IV b.i.d., Tridil drip had been going at 10 mcg per minute, Zofran 4 mg IV q. 8 hours p.r.n. nausea and vomiting. ALLERGIES: TO CODEINE, TO MEPERIDINE, TO PENICILLINS. Nature of this allergy is unknown. DIET: Morbidly obese. Denies acute weight loss or gain in the preceding few weeks to months. FAMILY AND SOCIAL HISTORY: Lives in the ____ community. Denies alcohol, tobacco, or illicit drug use or abuse. FAMILY HISTORY: Otherwise, noncontributory. REVIEW OF SYSTEMS: No loss of consciousness. No new onset seizures. No new onset focal weakness. No gross hematochezia or melena. No gross hematuria or dysuria. No hematemesis. No hemoptysis. He denies heat or cold intolerance. Denies polydipsia. Denies polyuria. Complete 13-system review of systems obtained. Pertinent positives and/or negatives as in body of history above; otherwise, they are noncontributory. PHYSICAL EXAMINATION: VITAL SIGNS: At presentation, he was afebrile, temperature ____ degrees Fahrenheit, pulse was 93, respiratory rate 22, blood pressure 132/83, O2 sats were 98%, inspired oxygen concentration at that time was not recorded. GENERAL: Elderly looking obese male. Normocephalic, atraumatic, talking to me with full sentences without significant respiratory distress. HEAD, EYES, EARS, NOSE AND THROAT: Anicteric. No conjunctival erythema. Oropharynx was moist. Mallampati #3 oropharynx. No gross jugular venous distention, no thyromegaly. NECK: Grossly, there were no palpable lymph nodes in the supraclavicular or submandibular lymph node chains. LUNGS: Auscultation of both lung love significant for bibasilar inspiratory crackles. No wheezing. HEART: Heart sounds 1 and 2 are heard. They were regular in rate and rhythm at time of my evaluation without overt rubs or murmurs. ABDOMEN: Soft, full, bowel sounds are positive, nontender. No palpable hepatosplenomegaly. EXTREMITIES: Without overt digital clubbing. No cyanosis, no pedal edema. Pedal pulses are 2+ bilaterally. NEUROLOGIC: Pupils are equal, round, about 3 mm, sluggishly reactive to light. Extraocular muscle movements are intact. He moves all 4 extremities spontaneously. PSYCHIATRIC: His mood is appropriate. His affect is normal. LABORATORY DATA: From my review are as follows: Admission white cell count 4500, hemoglobin 15.1, hematocrit 44.7, platelet count was 159. Serum sodium was 139, potassium 3.9, chloride was 101, bicarbonate 19, BUN 25, creatinine 1.6, glucose 246. Lactic acid level was 3.2, as early as this morning. Liver function test within normal limits. BNP was elevated at 5920. Urinalysis negative for nitrites and leukocyte esterase. Two sets of blood cultures, no growth to date. Chest x-ray was done. It shows gross cardiomegaly, bibasilar and perihilar infiltrates, possible small bilateral pleural effusions. No gross pneumothorax. No gross bony fracture. ASSESSMENT: 1. Acute hypoxemic respiratory failure. 2. Acute congestive heart failure exacerbation. 3. History of obstructive sleep apnea. 4. History of chronic obstructive lung disease. 5. Hypertension. 6. Hyperlipidemia. 7. Morbid obesity. 8. Mild metabolic acidosis. 9. Lactic acidosis. 10. Acute kidney injury. PLAN: He is looking much better. We will continue bilevel positive air pressure ventilation therapy at bedtime, not only for its obstructive sleep apnea, but also for its salutary effects on cardiovascular hemodynamics. Oxygen will be given as necessary to keep sats greater than or equal to about 92%. Aspiration precautions will be maintained. Acute coronary syndrome workup will be deferred to the stores clerk. Reintroduction of his chronic home medications also will be deferred to the stores clerk and the attending. I have stressed better compliance with his diet and fluids in particular. We will schedule BiPAP therapy at bedtime/noninvasive ventilation while in the hospital during this admission. I will repeat a lactic acid level in the morning. Just because of the elevated lactic acid, I will also get a procalcitonin level, but treat him empirically for community-acquired pneumonia with Levaquin monotherapy in case we are missing something. If he does cough up phlegm, we will send sputum for Gram stain, cultures and sensitivities. I will repeat the chest x-ray after about 48 hours. He will also be placed on GI prophylaxis as well as DVT prophylaxis. Flu and pneumonia vaccination will be addressed per protocol. Thank you very much for the consult. We will follow along and make further recommendations as picture progresses/becomes clearer. He is improved now and will be transferred to the telemetry floor. JOB# [id number] MARKELL/SHANIQUA
--- NOTE | 2019-12-21 18:34 | Event Note ---
Date: 12/21/19 Patient seen and evaluated Off nitroglycerin drip Transferred to telemetry
[2019-12-21] MEDS: ENOXAPARIN 40 MG/0.4 ML INJ SUB-Q SCH ×2 (21:38→21:43)
--- NOTE | 2019-12-22 03:30 | Ultrasound Report ---
EXAMINATION: Renal/Retroperitoneal Ultrasound INDICATION: Renal failure COMPARISON: No relevant prior studies are available for comparison. Findings: The right kidney is normal in size and echogenicity, measuring 10.9 cm in length. There is a single 1 .1 cm cyst in the midportion of the right kidney. There is a 12 cm cyst arising from the upper pole of the left kidney. This makes visualization of the left kidney difficult. No obvious hydronephrosis is identified. The urinary bladder appears within normal limits. The prostate gland is markedly enlarged and indents the base of the bladder. Impression: 1. Large left renal cyst. 2. Small right renal cyst. 3. Enlarged prostate gland which indents the base of the bladder. Signer Name: Chichi Rubi MD Signed: 12/22/2019 3:26 AM Workstation Name: [id number]
[2019-12-22 05:53] LABS: Basophils % (Auto) 0.7 % (0.0-1.8); Eosinophils # (Auto) 0.1 K/mm3 (0.0-0.4); Hematocrit 38.4 % (35.5-45.6); Hemoglobin 12.9 gm/dl (11.8-15.2); Lymphocytes # (Auto) 0.8 K/mm3 (1.2-5.4); Lymphocytes % (Auto) 20.8 % (13.4-35.0); Mean Corpuscular HGB Conc 34 % (32-34); Mean Corpuscular Volume 97 fl (84-94); Monocytes # (Auto) 0.4 K/mm3 (0.0-0.8); Monocytes % (Auto) 10.7 % (0.0-7.3); Platelet Count 117 K/mm3 (140-440); Red Blood Count 3.96 M/mm3 (3.65-5.03)
[2019-12-22 06:01] LABS: INR 1.03 (0.87-1.13)
[2019-12-22 06:07] LABS: BUN/Creatinine Ratio 18; Blood Urea Nitrogen 24 mg/dL (9-20); Calcium 8.7 mg/dL (8.4-10.2); Hemolysis Index 10
[2019-12-22] MEDS: FUROSEMIDE 40 MG/4 ML INJ IV SCH ×3 (06:20→21:24)
--- NOTE | 2019-12-22 09:35 | Progress Note ---
Assessment and Plan acute renal failure, likely CRS acute on chronic CHF Hypertension Pulm edema Cr is trending down, good UOP renal US -ve for obstruction urine studies are pending renally dose meds strict I&O daily weight Raul june MD [phone] Subjective Date of service: 12/22/19 Principal diagnosis: GLORIA Interval history: cont to have some SOB Objective - Vital Signs Vital signs: Vital Signs - 12hr 12/21/19 12/21/19 12/21/19 21:40 22:00 23:00 Temperature Pulse Rate 93 H Pulse Rate [ 72 From Monitor] Pulse Rate [ 72 Radial] Respiratory 17 Rate Blood Pressure O2 Sat by Pulse 97 100 Oximetry 12/21/19 12/22/19 12/22/19 23:07 00:40 02:56 Temperature 97.9 F Pulse Rate 85 93 H Pulse Rate [ 72 From Monitor] Pulse Rate [ 72 Radial] Respiratory 16 22 17 Rate Blood Pressure 143/89 O2 Sat by Pulse 100 95 100 Oximetry 12/22/19 12/22/19 03:42 07:35 Temperature 98.2 F 98.0 F Pulse Rate 78 76 Pulse Rate [ From Monitor] Pulse Rate [ Radial] Respiratory 18 18 Rate Blood Pressure 130/89 117/65 O2 Sat by Pulse 100 99 Oximetry - General Appearance General appearance: well-developed, well-nourished EENT: ATNC, PERRL, mucous membranes moist Neck: no JVD, no carotid bruit Respiratory: Present: Decreased Breath Sounds. Absent: Rales, Ronchi Cardiology: regular, S1S2 Gastrointestinal: normoactive bowel sounds Integumentary: no rash, warm and dry Neurologic: no focal deficit, no asterixis, alert and oriented x3 Musculoskeletal: other (trace pititng edema in BLE) Psychiatric: cooperative - Lab 12/22/19 05:19 12/22/19 05:19 Most recent lab results Calcium 8.7 mg/dL (8.4-10.2) 12/22/19 05:19 Phosphorus 3.80 mg/dL (2.5-4.5) 12/22/19 05:19 Magnesium 2.20 mg/dL (1.7-2.3) 12/22/19 05:19 Medications & Allergies - Medications Allergies/Adverse Reactions: Allergies codeine Allergy (Verified 07/04/19 14:55) Unknown meperidine [From Demerol] Allergy (Verified 07/04/19 14:55) Swelling Penicillins Allergy (Verified 07/04/19 14:55) Swelling Home Medications: Home Medications Medication Instructions Recorded Confirmed Last Taken Type Bumetanide [Bumetanide 2 mg tab] 2 mg PO BID #20 tab 07/04/19 12/21/19 Unknown Rx Metoprolol [Lopressor] 25 mg PO DAILY 12/21/19 12/21/19 Unknown History Valsartan 80 mg PO DAILY 12/21/19 12/21/19 Unknown History Active Medications: Generic Name Dose Route Start Last Admin Trade Name Freq PRN Reason Stop Dose Admin Enoxaparin Sodium 40 mg 12/21/19 22:00 12/21/19 21:43 Enoxaparin SUB-Q Not Given QDAY@2200 [facility] Famotidine 20 mg 12/22/19 10:00 Pepcid PO QDAY [facility] Furosemide 40 mg 12/21/19 06:00 12/22/19 06:20 Lasix IV 40 mg BID@0600,1800 [facility] Administration Nitroglycerin/Dextrose 50 mg in 250 mls @ 3 mls/hr 12/20/19 23:00 12/21/19 06:46 Tridil Drip 50mg/250ml IV 0 mcg/min TITR [facility] 0 mls/hr Titration Protocol 10 MCG/MIN Magnesium Hydroxide 30 ml 12/21/19 01:18 Milk Of Magnesia PO Q4H PRN Constipation Morphine Sulfate 2 mg 12/21/19 13:35 12/21/19 14:10 Morphine IV 2 mg Q4H PRN Administration Pain, Moderate (4-6) Ondansetron HCl 4 mg 12/21/19 01:18 Zofran IV Q8H PRN Nausea And Vomiting Sodium Chloride 10 ml 12/21/19 10:00 12/21/19 21:38 Sodium Chloride Flush Syringe 10 Ml IV 10 ml BID [facility] Administration Sodium Chloride 10 ml 12/21/19 01:18 12/22/19 06:20 Sodium Chloride Flush Syringe 10 Ml IV 10 ml PRN PRN Administration LINE FLUSH
--- NOTE | 2019-12-22 12:49 | Progress Note ---
Assessment and Plan Acute on chronic systolic heart failure Nonischemic dilated cardiomyopathy LVEF 15-20% by echo this admission no significant coronary disease, EF 20% at [facility] in 2019 per pt. Essential hypertension Chronic obstructive pulmonary disease Hyperlipidemia Sleep apnea Renal insufficiency Recommend: Continue medical therapy for nonischemic cardiomyopathy. Advised compliance with medications and dietary restrictions. 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 Subjective Date of service: 12/22/19 Principal diagnosis: GLORIA Interval history: Patient reports he is feeling better. Objective Vital Signs Temp Pulse Pulse Pulse Resp BP Pulse Ox 12/22/19 07:35 98.0 F 76 18 117/65 99 12/22/19 03:42 98.2 F 78 18 130/89 100 12/22/19 02:56 72 72 17 100 12/22/19 00:40 93 H 22 95 12/21/19 23:07 97.9 F 85 16 143/89 100 12/21/19 23:00 72 72 17 100 12/21/19 22:00 93 H 12/21/19 21:40 97 12/21/19 21:00 72 72 17 100 12/21/19 20:11 98.2 F 87 14 142/40 99 12/21/19 18:41 89 19 104/62 99 12/21/19 18:31 87 18 104/62 98 12/21/19 18:21 89 27 H 104/62 99 12/21/19 18:11 89 17 104/62 98 12/21/19 18:01 94 H 15 104/62 100 12/21/19 17:51 94 H 19 145/98 100 12/21/19 17:41 88 16 145/98 100 12/21/19 17:31 97 H 13 145/98 99 12/21/19 17:21 104 H 18 141/93 99 12/21/19 17:11 103 H 14 141/93 99 12/21/19 17:01 89 14 145/98 99 12/21/19 16:51 88 17 141/93 100 12/21/19 16:41 89 15 141/93 98 12/21/19 16:31 95 H 13 141/93 99 12/21/19 16:21 87 19 141/93 99 12/21/19 16:11 90 13 141/93 100 12/21/19 16:00 97.9 F 85 72 72 23 141/93 100 12/21/19 15:51 86 15 145/85 98 12/21/19 15:41 83 17 145/85 99 12/21/19 15:31 93 H 19 145/85 86 12/21/19 15:21 74 16 145/85 100 12/21/19 15:11 77 18 145/85 100 12/21/19 15:01 78 15 145/85 100 12/21/19 14:51 77 16 137/77 100 12/21/19 14:41 82 17 137/77 100 12/21/19 14:31 74 13 137/77 100 12/21/19 14:21 84 19 137/77 99 12/21/19 14:11 92 H 15 137/77 98 12/21/19 14:01 88 19 137/77 99 12/21/19 13:51 85 24 122/73 99 12/21/19 13:41 79 15 122/73 98 12/21/19 13:31 78 21 150/89 93 12/21/19 13:21 79 16 150/89 96 12/21/19 13:11 74 19 150/89 95 12/21/19 13:01 92 H 17 150/89 94 12/21/19 12:51 80 19 140/77 89 - Physical Examination General: No Apparent Distress HEENT: Positive: PERRL Neck: Positive: neck supple Cardiac: Positive: Reg Rate and Rhythm Lungs: Positive: Decreased Breath Sounds Neuro: Positive: Grossly Intact Extremities: Absent: edema - Labs and Meds Coagulation 12/22/19 Range/Units 05:19 PT 13.7 (12.2-14.9) Sec. INR 1.03 (0.87-1.13) CBC 12/22/19 Range/Units 05:19 WBC 3.9 L (4.5-11.0) K/mm3 RBC 3.96 (3.65-5.03) M/mm3 Hgb 12.9 (11.8-15.2) gm/dl Hct 38.4 D (35.5-45.6) % Plt Count 117 L (140-440) K/mm3 Lymph # 0.8 L (1.2-5.4) K/mm3 [place] # 0.4 (0.0-0.8) K/mm3 Eos # 0.1 (0.0-0.4) K/mm3 Baso # 0.0 (0.0-0.1) K/mm3 Comprehensive Metabolic Panel 12/22/19 Range/Units 05:19 Sodium 142 (137-145) mmol/L Potassium 4.7 D (3.6-5.0) mmol/L Chloride 101.5 (98-107) mmol/L Carbon Dioxide 31 H D (22-30) mmol/L BUN 24 H (9-20) mg/dL Creatinine 1.3 (0.8-1.3) mg/dL Glucose 143 H (75-100) mg/dL Calcium 8.7 (8.4-10.2) mg/dL
[2019-12-22] MEDS: FAMOTIDINE 20 MG TAB PO SCH (13:21)
--- NOTE | 2019-12-22 14:01 | Progress Note ---
Assessment and Plan Patient alert, awake. Sitting up in chair. On room air. No acute respiratory distress. O2 saturation 98%. Denies chest pain, shortness of breath or cough. Patient afebrile. No leukocytosis. Patient has no history of smoking, alcohol or drug abuse. Patient Obese, H/O of sleep apnea. BIPAP standby in the room to use it at night.Patient has history of hypertension and diabetes. Patient and has five children. Allergic to codeine, meperidine and pencillins. Chest xray done on 12/20/19 reported Mixed interstitial and airspace disease favored to represent pulmonary edema with probable small bilateral pleural effusions. Stable enlargement of the cardiac silhouette. - Patient Problems (1) Acute exacerbation of congestive heart failure Current Visit: Yes Status: Acute Plan to address problem: Patient is on Lasix. Management as per primary care and cardiology. (2) Acute respiratory distress Current Visit: Yes Status: Acute Plan to address problem: Improved. Patient is on room air. No acute respiratory distress. O2 saturation 98%. Obtaining ABGs on room air. (3) Renal insufficiency Current Visit: Yes Status: Acute Plan to address problem: Mangement as per nephrology. (4) Obesity (BMI 30.0-34.9) Current Visit: Yes Status: Acute Plan to address problem: Recommend to loose weight. Weight reduction diet. Continue S/C Lovenox. (5) Sleep apnea in adult Current Visit: Yes Status: Acute Plan to address problem: Patient using BIPAP during night time. Subjective Date of service: 12/22/19 Principal diagnosis: GLORIA Interval history: Patient alert, awake. Sitting up in chair. On room air. No acute respiratory distress. O2 saturation 98%. Denies chest pain, shortness of breath or cough. Patient afebrile. No leukocytosis. Patient has no history of smoking, alcohol or drug abuse. Patient Obese, H/O of sleep apnea. BIPAP standby in the room to use it at night.Patient has history of hypertension and diabetes. Patient and has five children. Allergic to codeine, meperidine and pencillins. Chest xray done on 12/20/19 reported Mixed interstitial and airspace disease favored to represent pulmonary edema with probable small bilateral pleural effusions. Stable enlargement of the cardiac silhouette. Objective Vital Signs - 12hr 0812/22/19 12/22/19 02:56 03:42 07:00 Temperature 98.2 F Pulse Rate 78 Pulse Rate [ 72 72 From Monitor] Pulse Rate [ 72 72 Radial] Respiratory 17 18 17 Rate Blood Pressure 130/89 O2 Sat by Pulse 100 100 100 Oximetry 12/22/19 12/22/19 07:35 09:00 Temperature 98.0 F Pulse Rate 76 Pulse Rate [ 72 From Monitor] Pulse Rate [ 72 Radial] Respiratory 18 17 Rate Blood Pressure 117/65 O2 Sat by Pulse 99 100 Oximetry Constitutional: no acute distress, alert, other (Obese. No acute respiratory distress at rest.) Eyes: non-icteric ENT: oropharynx moist Neck: supple, no lymphadenopathy Ascultation: Bilateral: diminished breath sounds, rales Cardiovascular: regular rate and rhythm Gastrointestinal: normoactive bowel sounds, soft, non-tender Integumentary: normal Extremities: no cyanosis, no edema Neurologic: normal mental status, non-focal exam, pupils equal and round, CN II- XII normal Psychiatric: mood appropriate, affect normal CBC and BMP: 12/22/19 05:19 12/22/19 05:19 ABG, PT/INR, D-dimer: PT/INR, D-dimer PT 13.7 Sec. (12.2-14.9) 12/22/19 05:19 INR 1.03 (0.87-1.13) 12/22/19 05:19 Abnormal lab findings: Abnormal Labs 12/20/19 12/20/19 12/21/19 23:07 23:07 05:49 WBC MCV 98 H MCH 33 H RDW 12.8 L Plt Count [place] % (Auto) Lymph # Carbon Dioxide BUN Creatinine Glucose Lactic Acid 2.20 H* Total Creatine Kinase NT-Pro-B Natriuret Pep 5920 H 12/21/19 12/21/19 12/21/19 09:25 12:30 12:30 WBC MCV MCH RDW Plt Count [place] % (Auto) Lymph # Carbon Dioxide BUN Creatinine Glucose Lactic Acid 2.70 H* 2.60 H* Total Creatine Kinase 206 H NT-Pro-B Natriuret Pep 12/21/19 12/21/19 12/22/19 Unknown Unknown 05:19 WBC 3.9 L MCV 97 H MCH 33 H RDW 13.0 L Plt Count 117 L Johnston % (Auto) 10.7 H Lymph # 0.8 L Carbon Dioxide 19 L BUN 25 H Creatinine 1.6 H Glucose 246 H Lactic Acid 3.20 H* Total Creatine Kinase NT-Pro-B Natriuret Pep 12/22/19 05:19 WBC MCV MCH RDW Plt Count Johnston % (Auto) Lymph # Carbon Dioxide 31 H D BUN 24 H Creatinine Glucose 143 H Lactic Acid Total Creatine Kinase NT-Pro-B Natriuret Pep Chest x-ray: report reviewed, image reviewed Additional Studies: CHEST 1 VIEW, 12/20/2019 10:17 PM CLINICAL INFORMATION/INDICATION: Respiratory distress COMPARISON: Chest radiograph, 07/04/2019 FINDINGS: SUPPORT DEVICES: None. HEART: There is stable moderate enlargement of the cardiac silhouette. LUNGS/PLEURA: Diffuse bilateral mixed interstitial and airspace disease is noted with probable small bilateral pleural effusions. ADDITIONAL FINDINGS: No additional acute findings. IMPRESSION: 1. Mixed interstitial and airspace disease favored to represent pulmonary edema with probable small bilateral pleural effusions. 2. Stable enlargement of the cardiac silhouette.
--- NOTE | 2019-12-22 15:03 | Progress Note ---
Assessment and Plan - Patient Problems (1) Acute exacerbation of congestive heart failure Current Visit: Yes Status: Acute Plan to address problem: - Cardiology consult - IV lasix - 12/20 echocardiogram shows LVEF 15 to 20% with no significant coronary disease - Per the patient echocardiogram 2019 at [facility] showed EF 20% (2) Acute respiratory distress Current Visit: Yes Status: Acute Plan to address problem: - ETTA on home CPAP - Weaned to RA now - Pulmonary consult - Supplemental oxygenation as needed - Pulmonary hygiene (3) Renal insufficiency Current Visit: Yes Status: Acute Plan to address problem: -Nephrology consult - 12/20 renal ultrasound shows 1. Large left renal cyst. 2. Small right renal cyst. 3. Enlarged prostate gland which indents the base of the bladder. - Admit creatinine 1.6 has trended down to 1.3 - Urine studies are pending - Renally dose meds - Strict I&O - Daily weight (4) HTN (hypertension) Current Visit: Yes Status: Acute Plan to address problem: -Restarted home metoprolol -Pressure monitor per protocol -IV hydralazine PRN (5) CAD (coronary artery disease) Current Visit: Yes Status: Acute Plan to address problem: -Echocardiogram shows nonobstructive CAD -Lipid panel pending (6) ETTA on CPAP Current Visit: Yes Status: Acute Plan to address problem: - CPAP HS (7) DVT prophylaxis Current Visit: Yes Status: Acute Plan to address problem: - Lovenox nightly - SCDs to bilateral lower extremities while in bed - GI prophylaxis History Interval history: This is a 59-year-old -French male with CHF presenting to the emergency room on 12/20 with shortness of breath and was found in a tripod position per EMS. Work-up in the emergency room today reveals pulmonary vascular congestion on the chest x-ray, elevated BNP at 5920 and renal insufficiency with cr 1.6. Nephrology, cardiology and pulmonary consulted. He was tachycardic and hypertensive and placed BiPAP, nitroglycerin drip and diuresed with IV lasix. This morning he is complaining of leg cramps which he states he gets when he takes IV Lasix, potassium 4.7. 12/20: Echocardiogram, renal ultrasound Hospitalist Physical - Constitutional Vitals: Temp Pulse Resp BP Pulse Ox 98.0 F 72 17 117/65 96 12/22/19 07:35 12/22/19 09:00 12/22/19 09:00 12/22/19 07:35 12/22/19 13:00 General appearance: Present: no acute distress, well-nourished, obese - EENT Eyes: Present: PERRL, EOM intact ENT: hearing intact - Neck Neck: Present: normal ROM - Respiratory Respiratory effort: normal Respiratory: bilateral: CTA - Cardiovascular Rhythm: regular Heart Sounds: Present: S1 & S2. Absent: systolic murmur, diastolic murmur - Extremities Extremities: no ischemia, pulses intact, pulses symmetrical, No edema, normal temperature, normal color, Full ROM Peripheral Pulses: within normal limits - Abdominal General gastrointestinal: soft, non-tender, non-distended, normal bowel sounds - Integumentary Integumentary: Present: clear, warm, dry - Psychiatric Psychiatric: cooperative - Neurologic Neurologic: CNII-XII intact, no focal deficits, moves all extremities, gait normal - Allied Health Allied health notes reviewed: nursing HEART Score - HEART Score Troponin: Troponin T 0.022 ng/mL (0.00-0.029) 12/21/19 Unknown Results - Labs CBC & Chem 7: 12/22/19 05:19 12/22/19 05:19 Labs: Laboratory Last Values WBC 3.9 K/mm3 (4.5-11.0) L 12/22/19 05:19 RBC 3.96 M/mm3 (3.65-5.03) 12/22/19 05:19 Hgb 12.9 gm/dl (11.8-15.2) 12/22/19 05:19 Hct 38.4 % (35.5-45.6) D 12/22/19 05:19 MCV 97 fl (84-94) H 12/22/19 05:19 MCH 33 pg (28-32) H 12/22/19 05:19 MCHC 34 % (32-34) 12/22/19 05:19 RDW 13.0 % (13.2-15.2) L 12/22/19 05:19 Plt Count 117 K/mm3 (140-440) L 12/22/19 05:19 Lymph % (Auto) 20.8 % (13.4-35.0) 12/22/19 05:19 [place] % (Auto) 10.7 % (0.0-7.3) H 12/22/19 05:19 Eos % (Auto) 3.0 % (0.0-4.3) 12/22/19 05:19 Baso % (Auto) 0.7 % (0.0-1.8) 12/22/19 05:19 Lymph # 0.8 K/mm3 (1.2-5.4) L 12/22/19 05:19 [place] # 0.4 K/mm3 (0.0-0.8) 12/22/19 05:19 Eos # 0.1 K/mm3 (0.0-0.4) 12/22/19 05:19 Baso # 0.0 K/mm3 (0.0-0.1) 12/22/19 05:19 Seg Neutrophils % 64.8 % (40.0-70.0) 12/22/19 05:19 Seg Neutrophils # 2.5 K/mm3 (1.8-7.7) 12/22/19 05:19 PT 13.7 Sec. (12.2-14.9) 12/22/19 05:19 INR 1.03 (0.87-1.13) 12/22/19 05:19 APTT 27.7 Sec. (24.2-36.6) 12/20/19 23:07 Sodium 142 mmol/L (137-145) 12/22/19 05:19 Potassium 4.7 mmol/L (3.6-5.0) D 12/22/19 05:19 Chloride 101.5 mmol/L (98-107) 12/22/19 05:19 Carbon Dioxide 31 mmol/L (22-30) H D 12/22/19 05:19 Anion Gap 14 mmol/L 12/22/19 05:19 BUN 24 mg/dL (9-20) H 12/22/19 05:19 Creatinine 1.3 mg/dL (0.8-1.3) 12/22/19 05:19 Estimated GFR > 60 ml/min 12/22/19 05:19 BUN/Creatinine Ratio 18 % 12/22/19 05:19 Glucose 143 mg/dL (75-100) H 12/22/19 05:19 Lactic Acid 1.50 mmol/L (0.7-2.0) 12/22/19 05:19 Calcium 8.7 mg/dL (8.4-10.2) 12/22/19 05:19 Phosphorus 3.80 mg/dL (2.5-4.5) 12/22/19 05:19 Magnesium 2.20 mg/dL (1.7-2.3) 12/22/19 05:19 Total Bilirubin 0.50 mg/dL (0.1-1.2) 12/21/19 Unknown AST 24 units/L (5-40) 12/21/19 Unknown ALT 14 units/L (7-56) 12/21/19 Unknown Alkaline Phosphatase 64 units/L (35-129) 12/21/19 Unknown Total Creatine Kinase 206 units/L (55-170) H 12/21/19 12:30 Troponin T 0.022 ng/mL (0.00-0.029) 12/21/19 Unknown NT-Pro-B Natriuret Pep 5920 pg/mL (0-900) H 12/20/19 23:07 Total Protein 8.2 g/dL (6.3-8.2) 12/21/19 Unknown Albumin 4.4 g/dL (3.9-5) 12/21/19 Unknown Albumin/Globulin Ratio 1.2 % 12/21/19 Unknown Urine Color Yellow (Yellow) 12/21/19 Unknown Urine Turbidity Clear (Clear) 12/21/19 Unknown Urine pH 5.0 (5.0-7.0) 12/21/19 Unknown Ur Specific Parker 1.016 (1.003-1.030) 12/21/19 Unknown Urine Protein 100 mg/dl mg/dL (Negative) 12/21/19 Unknown Urine Glucose (UA) Neg mg/dL (Negative) 12/21/19 Unknown Urine Ketones Neg mg/dL (Negative) 12/21/19 Unknown Urine Blood Mod (Negative) 12/21/19 Unknown Urine Nitrite Neg (Negative) 12/21/19 Unknown Urine Bilirubin Neg (Negative) 12/21/19 Unknown Urine Urobilinogen < 2.0 mg/dL (<2.0) 12/21/19 Unknown Ur Leukocyte Esterase Neg (Negative) 12/21/19 Unknown Urine WBC (Auto) 1.0 /HPF (0.0-6.0) 12/21/19 Unknown Urine RBC (Auto) 3.0 /HPF (0.0-6.0) 12/21/19 Unknown U Epithel Cells (Auto) < 1.0 /HPF (0-13.0) 12/21/19 Unknown Urine Bacteria (Auto) 1+ /HPF (Negative) 12/21/19 Unknown Urine Mucus 2+ /HPF 12/21/19 Unknown Schistocytes Smear None seen 12/21/19 12:30 Microbiology: Microbiology 12/21/19 Unknown Peripheral/Venous Blood Culture - Preliminary NO GROWTH AFTER 24 HOURS 12/21/19 Unknown Peripheral/Venous Blood Culture - Preliminary NO GROWTH AFTER 24 HOURS - Diagnostic Impressions Diagnostic Impressions: Echocardiogram 12/21/19 01:20 Transthoracic Echocardiogram Indication: LV function BP: 132/78 Conclusions *The left ventricular chamber size is severely dilated. *Mild concentric left ventricular hypertrophy is observed. *Global left ventricular systolic function is severely decreased. *The estimated ejection fraction is 15-20%. *The left atrium is severely dilated. *There is mild to moderate mitral regurgitation. *There is mild tricuspid regurgitation. *There is evidence of mild pulmonary hypertension. *The right ventricular systolic pressure is calculated at 38 mmHg. *A trivial pericardial effusion is visualized. Findings Procedure Info: The study quality is good. Left Ventricle: The left ventricular chamber size is severely dilated. Mild concentric left ventricular hypertrophy is observed. Global left ventricular systolic function is severely decreased. The estimated ejection fraction is 15-20%. The left ventricular diastolic filling pattern is consistent with pseudonormalization. Left Atrium: The left atrium is severely dilated. Right Ventricle: The right ventricle is mildly dilated. The right ventricular global systolic function is mildly reduced. Right Atrium: The right atrium is mildly dilated. Aortic Valve: The aortic valve is trileaflet. The aortic valve leaflets are mildly thickened. There is no evidence of aortic regurgitation. There is no evidence of aortic stenosis. Mitral Valve: The mitral valve leaflets are mildly thickened. There is mild to moderate mitral regurgitation. There is no evidence of mitral stenosis. Tricuspid Valve: There is mild tricuspid regurgitation. The right ventricular systolic pressure is calculated at 38 mmHg. There is evidence of mild pulmonary hypertension. There is no tricuspid stenosis. Pulmonic Valve: The pulmonic valve appears normal. There is trace pulmonic regurgitation. Pericardium: A trivial pericardial effusion is visualized. Aorta: The aorta appears normal. There is no dilatation of the ascending aorta. There is no dilatation of the aortic root. Pulmonary Artery: The main pulmonary artery appears normal. Venous: The inferior vena cava appears normal in size. There is a greater than 50% respiratory change in the inferior vena cava dimension. Measurements Chambers 2D Name Value Normal Range IVSd (2D) 0.71 cm (0.6 - 1.1) LVPWd (2D) 1.05 cm (0.6 - 1.1) LVIDd (2D) 7.24 cm (3.7 - 5.6) LVIDs (2D) 6.43 cm (2 - 3.8) LV FS (2D) 11.3 % - EF Teichholz (2D) 23.75 % - Ao root diameter (2D) 3.31 cm (2 - 3.7) Volumes/Mass Name Value Normal Range LA ESV SP 4CH (A/L) 114.21 ml - LA ESV SP 2CH (A/L) 113.17 ml - LA ESV BP (A/L) 121.18 ml - LA ESV SP 4CH (MOD) 109.24 ml - LA ESV SP 2CH (MOD) 108.37 ml - LV EDV SP 4CH (MOD) 245.83 ml - LV ESV SP 4CH (MOD) 190.43 ml - EF SP 4CH (MOD) 22.53 % - LV EDV SP 2CH (MOD) 167.1 ml - LV ESV SP 2CH (MOD) 130.73 ml - EF SP 2CH (MOD) 21.77 % - LV EDV BP 204.58 ml - LV ESV BP 160.35 ml - BP EF (MOD) 21.62 % - Diastolic/Systolic Function Name Value Normal Range MV E-wave Vmax 0.94 m/sec - MV deceleration time 169.25 msec - MV A-wave Vmax 0.29 m/sec - MV E:A ratio 3.29 ratio - Aortic Valve Name Value Normal Range AV Vmax 1.21 m/sec - AV VTI 19.71 cm - AV peak gradient 5.86 mmHg - AV mean gradient 3.22 mmHg - LVOT diameter 2.08 cm - LVOT Vmax 0.86 m/sec - LVOT VTI 15.76 cm - LVOT peak gradient 2.99 mmHg - LVOT mean gradient 1.4 mmHg - SV LVOT 53.76 ml - ROMULO (continuity Vmax) 2.43 cm2 - ROMULO (continuity VTI) 2.73 cm2 - Ascending Ao 2.78 cm - Tricuspid Valve Name Value Normal Range TV E-wave Vmax 0.41 m/sec - TR Vmax 2.76 m/sec - TR peak gradient 30.49 mmHg - RAP 3 mmHg - RVSP 38 mmHg - Pulmonic Valve/Qp:Qs Name Value Normal Range PV Vmax 0.71 m/sec - PV peak gradient 2.01 mmHg - PA end-diastolic Vmax 1.54 m/sec - RVOT Vmax 0.69 m/sec - RVOT VTI 12.43 cm - RVOT peak gradient 1.91 mmHg - PV acceleration time 98.95 msec - Ritchie/IV: IV Catheter Type [Left Peripheral IV Antecubital] Active Medications - Current Medications Current Medications: Generic Name Dose Route Start Last Admin Trade Name Freq PRN Reason Stop Dose Admin Enoxaparin Sodium 40 mg 12/21/19 22:00 12/21/19 21:43 Enoxaparin SUB-Q Not Given QDAY@2200 CHELI Famotidine 20 mg 12/22/19 10:00 12/22/19 13:21 Pepcid PO 20 mg QDAY CHELI Administration Furosemide 40 mg 12/21/19 06:00 12/22/19 06:20 Lasix IV 40 mg BID@0600,1800 CHELI Administration Nitroglycerin/Dextrose 50 mg in 250 mls @ 3 mls/hr 12/20/19 23:00 12/21/19 06:46 Tridil Drip 50mg/250ml IV 0 mcg/min TITR CHELI 0 mls/hr Titration Protocol 10 MCG/MIN Magnesium Hydroxide 30 ml 12/21/19 01:18 Milk Of Magnesia PO Q4H PRN Constipation Metoprolol Tartrate 25 mg 12/23/19 10:00 Metoprolol PO DAILY CHELI Morphine Sulfate 2 mg 12/21/19 13:35 12/21/19 14:10 Morphine IV 2 mg Q4H PRN Administration Pain, Moderate (4-6) Ondansetron HCl 4 mg 12/21/19 01:18 Zofran IV Q8H PRN Nausea And Vomiting Sodium Chloride 10 ml 12/21/19 10:00 12/22/19 13:22 Sodium Chloride Flush Syringe 10 Ml IV 10 ml BID CHELI Administration Sodium Chloride 10 ml 12/21/19 01:18 12/22/19 06:20 Sodium Chloride Flush Syringe 10 Ml IV 10 ml PRN PRN Administration LINE FLUSH Nutrition/Malnutrition Assess - Dietary Evaluation Nutrition/Malnutrition Findings: Nutrition Notes Start: 12/21/19 10:25 Freq: Status: Active Protocol: Document 12/21/19 10:25 LM (Rec: 12/21/19 10:28 LM [id number]) Nutrition Notes Need for Assessment generated from: MD Order Initial or Follow up Brief Note Current Diagnosis Acute Kidney Injury,COPD, Hypertension,Heart Failure, Hyperlipidemia Current Diet cardiac Labs/Tests BUN 25 Cr 1.6 BG 246 Pertinent Medications Lasix Height 5 ft 10 in Weight 104.326 kg [place] Body Weight (kg) 75.45 BMI 33.0 Weight Status Obese Subjective/Other Information MD consult for diet education and RN screen for skin risk. No brianna score in chart. MD with pt at time of visit. Nutrition Intervention Follow-Up By: 12/24/19 Additional Comments F/U for diet ed needs, brianna score
[2019-12-22 16:58] LABS: Chol/HDL Ratio 3.83 %
[2019-12-22] MEDS: ENOXAPARIN 40 MG/0.4 ML INJ SUB-Q SCH (21:24)
[2019-12-23] MEDS: FUROSEMIDE 40 MG/4 ML INJ IV SCH (06:33)
--- NOTE | 2019-12-23 09:06 | Progress Note ---
Assessment and Plan acute renal failure, likely CRS acute on chronic CHF Hypertension Pulm edema BMP is pending can be discharged from renal standpoint, he will be followed in my office within 1-2 weeks with labs renal US -ve for obstruction renally dose meds strict I&O daily weight Raul june MD [phone] Subjective Date of service: 12/23/19 Principal diagnosis: GLORIA Interval history: SOb is much better, ready to go home Objective - Vital Signs Vital signs: Vital Signs - 12hr 12/22/19 12/22/19 12/23/19 22:54 23:15 00:01 Temperature 98.1 F Pulse Rate 85 74 Respiratory 18 Rate Blood Pressure 125/81 O2 Sat by Pulse 95 98 Oximetry 12/23/19 12/23/19 03:54 08:50 Temperature 97.6 F Pulse Rate 79 Respiratory 19 Rate Blood Pressure 145/97 O2 Sat by Pulse 100 100 Oximetry - General Appearance General appearance: well-developed, well-nourished EENT: ATNC, PERRL, mucous membranes moist Neck: no JVD, no carotid bruit Respiratory: Present: Clear to Ascultation. Absent: Rales, Ronchi Cardiology: regular, S1S2 Gastrointestinal: normoactive bowel sounds Integumentary: no rash, warm and dry Neurologic: no focal deficit, no asterixis, alert and oriented x3 Musculoskeletal: other (no edema in BLE) Psychiatric: cooperative - Lab 12/22/19 05:19 12/22/19 05:19 Most recent lab results Calcium 8.7 mg/dL (8.4-10.2) 12/22/19 05:19 Phosphorus 3.80 mg/dL (2.5-4.5) 12/22/19 05:19 Magnesium 2.20 mg/dL (1.7-2.3) 12/22/19 05:19 Medications & Allergies - Medications Allergies/Adverse Reactions: Allergies codeine Allergy (Verified 07/04/19 14:55) Unknown meperidine [From Demerol] Allergy (Verified 07/04/19 14:55) Swelling Penicillins Allergy (Verified 07/04/19 14:55) Swelling Home Medications: Home Medications Medication Instructions Recorded Confirmed Last Taken Type Bumetanide [Bumetanide 2 mg tab] 2 mg PO BID #20 tab 07/04/19 12/21/19 Unknown Rx Metoprolol [Lopressor] 25 mg PO DAILY 12/21/19 12/21/19 Unknown History Valsartan 80 mg PO DAILY 12/21/19 12/21/19 Unknown History Active Medications: Generic Name Dose Route Start Last Admin Trade Name Freq PRN Reason Stop Dose Admin Enoxaparin Sodium 40 mg 12/21/19 22:00 12/22/19 21:24 Enoxaparin SUB-Q Not Given QDAY@2200 CHELI Famotidine 20 mg 12/22/19 10:00 12/22/19 13:21 Pepcid PO 20 mg QDAY CHELI Administration Furosemide 40 mg 12/21/19 06:00 12/23/19 06:33 Lasix IV 40 mg BID@0600,1800 [facility] Administration Nitroglycerin/Dextrose 50 mg in 250 mls @ 3 mls/hr 12/20/19 23:00 12/21/19 06:46 Tridil Drip 50mg/250ml IV 0 mcg/min TITR CHELI 0 mls/hr Titration Protocol 10 MCG/MIN Magnesium Hydroxide 30 ml 12/21/19 01:18 Milk Of Magnesia PO Q4H PRN Constipation Metoprolol Tartrate 25 mg 12/23/19 10:00 Metoprolol PO DAILY [facility] Morphine Sulfate 2 mg 12/21/19 13:35 12/21/19 14:10 Morphine IV 2 mg Q4H PRN Administration Pain, Moderate (4-6) Ondansetron HCl 4 mg 12/21/19 01:18 Zofran IV Q8H PRN Nausea And Vomiting Sodium Chloride 10 ml 12/21/19 10:00 12/22/19 22:00 Sodium Chloride Flush Syringe 10 Ml IV 10 ml BID CHELI Administration Sodium Chloride 10 ml 12/21/19 01:18 12/22/19 06:20 Sodium Chloride Flush Syringe 10 Ml IV 10 ml PRN PRN Administration LINE FLUSH
[2019-12-23 09:16] VITALS: BP 122/81
[2019-12-23] MEDS ORDERED: METOPROLOL TARTRATE 25 MG TAB PO SCH (10:00)
--- NOTE | 2019-12-23 10:05 | Progress Note ---
Assessment and Plan Patient alert, awake. Resting On room air. No acute respiratory distress. O2 saturation 100%. Denies chest pain, shortness of breath or cough. Patient afebrile. No leukocytosis. Patient has no history of smoking, alcohol or drug abuse. Patient Obese, H/O of sleep apnea. BIPAP standby in the room to use it at night.Patient has history of hypertension and diabetes. Patient and has five children. Allergic to codeine, meperidine and pencillins. Chest xray done on 12/20/19 reported Mixed interstitial and airspace disease favored to represent pulmonary edema with probable small bilateral pleural effusions. Stable enlargement of the cardiac silhouette. - Patient Problems (1) Acute exacerbation of congestive heart failure Current Visit: Yes Status: Acute Plan to address problem: Patient is on Lasix. Management as per primary care and cardiology. (2) Acute respiratory distress Current Visit: Yes Status: Acute Plan to address problem: Improved. Patient is on room air. No acute respiratory distress. O2 saturation 100%. Obtaining ABGs on room air. (3) Renal insufficiency Current Visit: Yes Status: Acute Plan to address problem: Mangement as per nephrology. (4) Obesity (BMI 30.0-34.9) Current Visit: Yes Status: Acute Plan to address problem: Recommend to loose weight. Weight reduction diet. Continue S/C Lovenox. (5) Sleep apnea in adult Current Visit: Yes Status: Acute Plan to address problem: Patient using BIPAP during night time. Patient has CPAP at home. According to the patient CPAP pressure 8 Cm H2o pressure. Subjective Date of service: 12/23/19 Principal diagnosis: GLORIA Interval history: Patient alert, awake. Resting On room air. No acute respiratory distress. O2 saturation 100%. Denies chest pain, shortness of breath or cough. Patient afebrile. No leukocytosis. Patient has no history of smoking, alcohol or drug a buse. Patient Obese, H/O of sleep apnea. BIPAP standby in the room to use it at night.Patient has history of hypertension and diabetes. Patient and has five children. Allergic to codeine, meperidine and pencillins. Chest xray done on 12/20/19 reported Mixed interstitial and airspace disease favored to represent pulmonary edema with probable small bilateral pleural effusions. Stable enlargement of the cardiac silhouette. Objective Vital Signs - 12hr 12/22/19 12/22/19 12/23/19 22:54 23:15 00:01 Temperature 98.1 F Pulse Rate 85 74 Respiratory 18 Rate Blood Pressure 125/81 O2 Sat by Pulse 95 98 Oximetry 12/23/19 12/23/19 12/23/19 03:54 07:54 08:50 Temperature 97.6 F 97.8 F Pulse Rate 79 77 Respiratory 19 18 Rate Blood Pressure 145/97 122/81 O2 Sat by Pulse 100 99 100 Oximetry Constitutional: no acute distress, alert, other (Obese. No acute respiratory distress at rest.) Eyes: non-icteric ENT: oropharynx moist Neck: supple, no lymphadenopathy Ascultation: Bilateral: diminished breath sounds, rales Cardiovascular: regular rate and rhythm Gastrointestinal: normoactive bowel sounds, soft, non-tender Integumentary: normal Extremities: no cyanosis, no edema Neurologic: normal mental status, non-focal exam, pupils equal and round, CN II- XII normal Psychiatric: mood appropriate, affect normal CBC and BMP: 12/22/19 05:19 12/22/19 05:19 ABG, PT/INR, D-dimer: PT/INR, D-dimer PT 13.7 Sec. (12.2-14.9) 12/22/19 05:19 INR 1.03 (0.87-1.13) 12/22/19 05:19 Abnormal lab findings: Abnormal Labs 12/20/19 12/20/19 12/21/19 23:07 23:07 05:49 WBC MCV 98 H MCH 33 H RDW 12.8 L Plt Count [place] % (Auto) Lymph # Carbon Dioxide BUN Creatinine Glucose Lactic Acid 2.20 H* Total Creatine Kinase NT-Pro-B Natriuret Pep 5920 H 12/21/19 12/21/19 12/21/19 09:25 12:30 12:30 WBC MCV MCH RDW Plt Count [place] % (Auto) Lymph # Carbon Dioxide BUN Creatinine Glucose Lactic Acid 2.70 H* 2.60 H* Total Creatine Kinase 206 H NT-Pro-B Natriuret Pep 12/21/19 12/21/19 12/22/19 Unknown Unknown 05:19 WBC 3.9 L MCV 97 H MCH 33 H RDW 13.0 L Plt Count 117 L [place] % (Auto) 10.7 H Lymph # 0.8 L Carbon Dioxide 19 L BUN 25 H Creatinine 1.6 H Glucose 246 H Lactic Acid 3.20 H* Total Creatine Kinase NT-Pro-B Natriuret Pep 12/22/19 05:19 WBC MCV MCH RDW Plt Count [place] % (Auto) Lymph # Carbon Dioxide 31 H D BUN 24 H Creatinine Glucose 143 H Lactic Acid Total Creatine Kinase NT-Pro-B Natriuret Pep
[2019-12-23] MEDS: FAMOTIDINE 20 MG TAB PO SCH (10:52)
--- NOTE | 2019-12-23 11:27 | Discharge Summary ---
<ENMA BARBOZA - Last Filed: 12/23/19 11:47> Providers - Providers Date of Admission: 12/21/19 00:54 Date of discharge: 12/23/19 Attending physician: ROXANNE DUNCAN 12/21/19 01:18 Consult to Dietitian/Nutrition [CONS] Routine Physician Instructions: Reason For Exam: Reason for Consult: Diet education Consult to Physician [CONS] Routine Comment: Consulting Provider: MIO AVELAR Physician Instructions: Reason For Exam: CHF EXACERBATION 12/21/19 01:52 Consult to Physician [CONS] Routine Comment: Consulting Provider: UMM BAUTISTA Physician Instructions: Reason For Exam: RENAL INSUFFIENCY 12/21/19 12:11 Consult to Physician [CONS] Urgent Comment: Consulting Provider: CARRI CARRERA Physician Instructions: Reason For Exam: Critical Care management/pulmonary management Primary care physician: INFORMATION TECHNOLOGY AUDITOR Hospitalization Condition: Stable Procedures: 12/20 renal ultrasound: The right kidney is normal in size and echogenicity, measuring 10.9 cm in length. There is a single 1.1 cm cyst in the midportion of the right kidney. There is a 12 cm cyst arising from the upper pole of the left kidney. This makes visualization of the left kidney difficult. No obvious hydronephrosis is identified. The urinary bladder appears within normal limits. The prostate gland is markedly enlarged and indents the base of the bladder. Impression: 1. Large left renal cyst. 2. Small right renal cyst. 3. Enlarged prostate gland which indents the base of the bladder. 12/20 Cardiac echocardiogram: Dilated left ventricular chamber, mild LVH, global of feet systolic function severely decreased, estimated EF is 15-20%, left atrium is severely dilated, mild to moderate mitral valve regurgitation, mild tricuspid valve regurgitation, mild pulmonary hypertension and right ventricular systolic pressure is calculated at 38mmHg with trivial pericardial effusion. 12/19 CXR: 1. Mixed interstitial and airspace disease favored to represent pulmonary edema with probable small bilateral pleural effusions. 2. Stable enlargement of the cardiac silhouette. Hospital course: This is a 59-year-old -[place] male with CHF presenting to the emergency room on 12/20 with shortness of breath and was found in a tripod pos ition per EMS. Work-up in the emergency room today reveals pulmonary vascular congestion on the chest x-ray, elevated BNP at 5920 and renal insufficiency with cr 1.6. Nephrology, cardiology and pulmonary consulted. He was tachycardic and hypertensive and placed BiPAP, nitroglycerin drip and diuresed with IV lasix. He will be discharged home with Lasix, Aldactone and will resume his home hypertension medications. Please follow up with primary care physician,composite science teacher and pulmonology within 1-2 weeks of discharge. (1) Acute exacerbation of congestive heart failure Current Visit: Yes Status: Acute Plan to address problem: - 12/20 echocardiogram shows LVEF 15 to 20% with no significant coronary disease - Per the patient echocardiogram 2019 at [facility] showed EF 20% - DC home with PO lasix, Aldactone in addition to the antihypertensives you take at home (2) Acute respiratory distress Current Visit: Yes Status: Resolved Plan to address problem: - ETTA on home CPAP - Followup with Pulmonary outpatient - Follow Pulmonary hygiene (3) Vasomotor nephropathy Current Visit: Yes Status: resolved Plan to address problem: - 12/20 renal ultrasound shows 1. Large left renal cyst. 2. Small right renal cyst. 3. Enlarged prostate gland which indents the base of the bladder. - Admit creatinine 1.6 has trended down to 1.3 (4) HTN (hypertension) Current Visit: Yes Status: Chronic Plan to address problem: -Restarted on home antihypertensive med regimen -Blood pressure monitoring daily (5) CAD (coronary artery disease) Current Visit: Yes Status: Phonic Plan to address problem: - Echocardiogram shows nonobstructive CAD - Continue Lipitor (6) ETTA on CPAP Current Visit: Yes Status: Chronic Plan to address problem: - CPAP HS - Follow pulmonary hygiene - Follow-up with primary care physician and pulmonology Disposition: DC-01 TO HOME OR SELFCARE Time spent for discharge: 45 Core Measure Documentation - Palliative Care Palliative Care/ Comfort Measures: Not Applicable - Core Measures Any of the following diagnoses?: history only Exam - Constitutional Vitals: Temp Pulse Resp BP Pulse Ox 97.8 F 82 18 122/81 100 12/23/19 07:54 12/23/19 10:52 12/23/19 07:54 12/23/19 07:54 12/23/19 08:50 General appearance: Present: no acute distress - EENT Eyes: Present: PERRL ENT: hearing intact - Neck Neck: Present: supple - Respiratory Respiratory effort: normal Respiratory: bilateral: CTA - Cardiovascular Rhythm: regular Heart Sounds: Present: S1 & S2. Absent: systolic murmur, diastolic murmur - Extremities Extremities: no ischemia, pulses intact, pulses symmetrical, No edema, normal temperature, normal color, Full ROM Peripheral Pulses: within normal limits - Abdominal General gastrointestinal: Present: soft, non-tender, non-distended, normal bowel sounds - Integumentary Integumentary: Present: clear, warm, dry - Musculoskeletal Musculoskeletal: strength equal bilaterally - Psychiatric Psychiatric: cooperative - Neurologic Neurologic: CNII-XII intact, no focal deficits, moves all extremities - Allied Health Allied health notes reviewed: nursing Plan Activity: advance as tolerated Diet: low fat, low cholesterol, low salt Special Instructions: record daily weights, record daily BP diary Additional Instructions: Please present to the nearest emergency department or contact your primary care physician for worsening symptoms. Follow-up with your primary care physician, cracker and cookie machine operator, and composite science teacher within 1 to 2 weeks of discharge Follow up with: DIDI KIM MD [Staff Physician] - 7 Days PRIMARY CARE, [Primary Care Provider] - 7 Days ANA HINDS MD [Staff Physician] - 7 Days TRINA MCDANIEL MD [Staff Physician] - 7 Days Prescriptions: Spironolactone [Aldactone] 25 mg PO QDAY #30 tablet Furosemide [Lasix TAB] 40 mg PO QDAY #30 tablet Metoprolol [Lopressor TAB] 25 mg PO DAILY #30 tablet <ROXANNE DUNCAN - Last Filed: 12/23/19 21:18> Providers - Providers Date of Admission: 12/21/19 00:54 Attending physician: ROXANNE DUNCAN 12/21/19 01:18 Consult to Dietitian/Nutrition [CONS] Routine Physician Instructions: Reason For Exam: Reason for Consult: Diet education Consult to Physician [CONS] Routine Comment: Consulting Provider: MIO AVELAR Physician Instructions: Reason For Exam: CHF EXACERBATION 12/21/19 01:52 Consult to Physician [CONS] Routine Comment: Consulting Provider: UMM BAUTISTA Physician Instructions: Reason For Exam: RENAL INSUFFIENCY 12/21/19 12:11 Consult to Physician [CONS] Urgent Comment: Consulting Provider: CARRI CARRERA Physician Instructions: Reason For Exam: Critical Care management/pulmonary management Primary care physician: INFORMATION TECHNOLOGY AUDITOR Hospitalization Hospital course: I have seen and examined the patient at the bedside this morning Patient's chart and medications reviewed, and agree with the nurse practitioners documentation and treatment and discharge plan. With the following additions; I counseled the patient the importance of adhering to the treatment plan Patient advised to comply with medications, diet, exercise and follow-up visits Advised exercise as tolerated and weight reduction when medically stable Patient verbalized understanding Exam - Constitutional Vitals: Temp Pulse Resp BP Pulse Ox 97.8 F 82 18 122/81 100 12/23/19 07:54 12/23/19 10:52 12/23/19 07:54 12/23/19 07:54 12/23/19 08:50
--- NOTE | 2019-12-23 12:11 | Progress Note ---
Assessment and Plan Acute on chronic systolic heart failure Nonischemic dilated cardiomyopathy LVEF 15-20% by echo this admission no significant coronary disease, EF 20% at [facility] in 2019 per pt. Essential hypertension Chronic obstructive pulmonary disease Hyperlipidemia Sleep apnea Renal insufficiency Recommend: Continue medical therapy for nonischemic cardiomyopathy. Advised compliance with medications and dietary restrictions. Patient advised to follow up with his primary it administrative assistant in [place] within 3-5 days. Subjective Date of service: 12/23/19 Principal diagnosis: GLORIA Interval history: Patient reports he is feeling better. Objective Vital Signs Temp Pulse Pulse Pulse Resp BP Pulse Ox 12/23/19 10:52 82 12/23/19 08:50 100 12/23/19 07:54 97.8 F 77 18 122/81 99 12/23/19 03:54 97.6 F 79 19 145/97 100 12/23/19 00:01 74 12/22/19 23:15 98.1 F 85 18 125/81 98 12/22/19 22:54 95 12/22/19 19:10 98.3 F 85 14 133/82 98 12/22/19 19:07 85 12/22/19 17:33 98.4 F 92 H 18 136/82 96 12/22/19 15:00 72 72 17 100 12/22/19 13:00 96 12/22/19 12:19 98.2 F 87 18 122/82 98 - Physical Examination General: No Apparent Distress HEENT: Positive: PERRL Neck: Positive: neck supple Cardiac: Positive: Reg Rate and Rhythm Neuro: Positive: Grossly Intact Extremities: Absent: edema - Labs and Meds Lipids 12/22/19 Range/Units 05:19 Triglycerides 144 (2-149) mg/dL Cholesterol 165 (50-199) mg/dL HDL Cholesterol 43 (40-59) mg/dL Cholesterol/HDL Ratio 3.83 % - EKG Sinus rhythms and dysrhythmias: sinus rhythm Ventricular dysrhythmias: ventricular premature com
== END 2019-12-23 15:43 | disposition home or self-care (01) | DRG 291 ==
LOC: ED 22:55 → CC1 12-21 00:54 → 4A 12-21 21:08
PROVIDERS: ADMIT Internal Medicine Geriatric Medicine; ATTEND Internal Medicine
PROC: 5A09357 Assistance with Respiratory Ventilation, Less than 24 Consecutive Hours, Continuous Positive Airway Pressure (ICD-10-PCS; principal; 2019-12-21)
DX: I11.0 Hypertensive heart disease with heart failure (principal); N17.0 Acute kidney failure with tubular necrosis; J90 Pleural effusion, not elsewhere classified; I50.43 Acute on chronic combined systolic (congestive) and diastolic (congestive) heart failure; I42.0 Dilated cardiomyopathy; E78.5 Hyperlipidemia, unspecified; J44.9 Chronic obstructive pulmonary disease, unspecified; E66.9 Obesity, unspecified; I25.10 Atherosclerotic heart disease of native coronary artery without angina pectoris; R06.03 Acute respiratory distress; E11.9 Type 2 diabetes mellitus without complications; G47.33 Obstructive sleep apnea (adult) (pediatric); N28.1 Cyst of kidney, acquired; I08.1 Rheumatic disorders of both mitral and tricuspid valves; I27.20 Pulmonary hypertension, unspecified; Z68.33 Body mass index [BMI] 33.0-33.9, adult; Z88.5 Allergy status to narcotic agent; Z88.0 Allergy status to penicillin; Z88.8 Allergy status to other drugs, medicaments and biological substances
CPT/HCPCS: 36415; 71045; 76770; 80048; 80053; 80061; 81001; 82140; 82550; 83735; 83880; 84100; 84484; 85025; 85610; 85730; 87040; 93005; 93306; 94660; 94760; 96374; G0378; J1650; J1940; J2270

== ENCOUNTER 2020-09-23 11:00 | Outpatient (CLI) | payer MEDICARE | END 2020-09-23 11:01 | disposition home or self-care (01) | LOC: SLR 11:00 | PROVIDERS: ATTEND Internal Medicine | DX: G47.30 Sleep apnea, unspecified (principal); G47.33 Obstructive sleep apnea (adult) (pediatric) | CPT/HCPCS: 95811 ==

== ENCOUNTER 2020-09-30 15:07 | Inpatient (IN) | payer MEDICARE ==
--- NOTE | 2020-09-30 18:00 | Event Note ---
ED Screening Note Date of service: 09/30/20 Time: 17:59 ED Screening Note: 60-year-old male patient with history of congestive heart failure and hypertension presents to the emergency department with complaints of chest pain, shortness of breath, bilateral lower extremity edema, and cough for 2 days. States his current symptoms are consistent with prior CHF exacerbations. Brief review of past medical records indicates patient was previously found to have an ejection fraction of 20%. States he takes his Lasix "as needed." General: Awake, appropriately interactive, no acute distress. Neck: Supple. Full range of motion intact. Cardiovascular: Regular rate and rhythm. Bilateral pretibial pitting edema. Pulmonary: No respiratory distress. Diminished breath sounds along lung bases bilaterally. Skin: No apparent rashes or lesions. Neurological: No facial asymmetry. Speech is clear. Follows commands. Patient is alert and oriented. Musculoskeletal: Moves all four extremities spontaneously with normal range of motion. Psych: Cooperative. Appropriate mood and affect. I have greeted and performed a focused rapid initial assessment of this patient. A comprehensive ED assessment and evaluation of the patient, analysis of all test results, and completion of the medical decision-making process will be conducted by additional ED providers. This initial assessment/diagnostic orders/clinical plan/treatment(s) is/are subject to change based on patients health status, clinical progression and re-assessment. Further treatment and workup at subsequent clinical provider's discretion. Patient/guardian urged not to elope from the ED as their condition may be serious if not clinically assessed and managed.
[2020-09-30 18:38] LABS: Basophils % (Auto) 0.5 % (0.0-1.8); Eosinophils % (Auto) 0.8 % (0.0-4.3); Hematocrit 44.2 % (35.5-45.6); Hemoglobin 14.2 gm/dl (11.8-15.2); Lymphocytes # (Auto) 0.8 K/mm3 (1.2-5.4); Lymphocytes % (Auto) 19.3 % (13.4-35.0); Mean Corpuscular HGB Conc 32 % (32-34); Mean Corpuscular Volume 100 fl (84-94); Monocytes # (Auto) 0.5 K/mm3 (0.0-0.8); Monocytes % (Auto) 10.5 % (0.0-7.3); Platelet Count 158 K/mm3 (140-440); Red Blood Count 4.42 M/mm3 (3.65-5.03); Red Cell Distribution Width 17.3 % (13.2-15.2)
[2020-09-30 18:40] LABS: Albumin 3.9 g/dL (3.9-5); Calcium 8.7 mg/dL (8.4-10.2)
--- NOTE | 2020-09-30 18:53 | XRay Report ---
CHEST 2 VIEWS INDICATION / CLINICAL INFORMATION: chest pain/SOB; hx CHF. COMPARISON: 06/21/2019 FINDINGS: SUPPORT DEVICES: None. HEART / MEDIASTINUM: There is enlargement of the cardiac silhouette. LUNGS / PLEURA: There is patchy airspace opacity in the right lung base No pneumothorax. ADDITIONAL FINDINGS: No significant additional findings. IMPRESSION: 1. There is enlargement of the cardiac silhouette. 2. There is opacity in the right lung base which could represent atelectasis or pneumonia. Follow-up chest radiograph is recommended in the next several weeks to ensure clearing of the lungs. Signer Name: Jonah De Leon MD Signed: 09/30/2020 6:49 PM Workstation Name: [id number]
[2020-09-30] MEDS ORDERED: BENZONATATE 100 MG CAP PO ONE ×2 (21:39→23:55)
[2020-09-30] MEDS ORDERED: ASPIRIN 81 MG TAB CHEW PO ONE (21:39)
--- NOTE | 2020-09-30 21:43 | Emergency Department Report ---
ED Chest Pain HPI - General Chief Complaint: Chest Pain Stated Complaint: CHEST PAIN/SHORTNESS OF BREATH Time Seen by Provider: 09/30/20 21:31 Source: patient Mode of arrival: Ambulatory Limitations: No Limitations - History of Present Illness Initial Comments: This is a 60-year-old -[place] male who presents to the emergency department from home with a complaint of a 2-day history of intermittent chest pain, shortness of breath, a mixed dry and productive cough, and bilateral lower extremity swelling. The patient has a history of CHF, hypertension, hyperlipidemia, sleep apnea. He has not taken anything for symptoms prior to presentation but has been compliant with his home medications. No recent travel or sick contacts at home. The shortness of breath worsens with exertion. Patient follows with Dr. Ortega for cardiology. The patient says that the chest pain occurred when the symptoms first began and he had 2 short, sharp ep isodes. Severity scale (0 -10): 7 - Related Data Home Medications Medication Instructions Recorded Confirmed Last Taken Metoprolol [Lopressor] 25 mg PO DAILY 12/21/19 12/21/19 Unknown Previous Rx's Medication Instructions Recorded Last Taken Type Furosemide [Lasix TAB] 40 mg PO QDAY #30 tablet 12/23/19 Unknown Rx Metoprolol [Lopressor TAB] 25 mg PO DAILY #30 tablet 12/23/19 Unknown Rx Spironolactone [Aldactone] 25 mg PO QDAY #30 tablet 12/23/19 Unknown Rx Valsartan 80 mg PO DAILY #30 tab 12/23/19 Unknown Rx Allergies Allergy/AdvReac Type Severity Reaction Status Date / Time codeine Allergy Unknown Verified 07/04/19 14:55 meperidine [From Demerol] Allergy Swelling Verified 07/04/19 14:55 Penicillins Allergy Swelling Verified 07/04/19 14:55 Heart Score - HEART Score History: Slightly suspicious EKG: Non-specific Age: 45-65 Risk factors: 1-2 risk factors Troponin: > 3x normal limit HEART Score: 5 - EKG Read Time Time EKG Completed: 15:39 EKG Read Time: 15:42 - Critical Actions Critical Actions: 4-6 pts:12-16.6% risk of adverse cardiac event. Should be admitted ED Review of Systems ROS: Stated complaint: CHEST PAIN/SHORTNESS OF BREATH Other details as noted in HPI ED Past Medical Hx - Past Medical History Previous Medical History?: Yes Hx Hypertension: Yes Hx Congestive Heart Failure: Yes Hx COPD: Yes Additional medical history: High Cholesterol, Sleep Apnea - Social History Smoking Status: Never Smoker - Medications Home Medications: Home Medications Medication Instructions Recorded Confirmed Last Taken Type Metoprolol [Lopressor] 25 mg PO DAILY 12/21/19 12/21/19 Unknown History Furosemide [Lasix TAB] 40 mg PO QDAY #30 tablet 12/23/19 Unknown Rx Metoprolol [Lopressor TAB] 25 mg PO DAILY #30 tablet 12/23/19 Unknown Rx Spironolactone [Aldactone] 25 mg PO QDAY #30 tablet 12/23/19 Unknown Rx Valsartan 80 mg PO DAILY #30 tab 12/23/19 12/21/19 Unknown Rx ED Physical Exam - General Limitations: No Limitations - Other Other exam information: GENERAL: The patient is well-developed well-nourished. HENT: Normocephalic. Atraumatic. Patient has moist mucous membranes. EYES: Extraocular motions are intact. NECK: Supple. Trachea is midline. CHEST/LUNGS: Clear to auscultation. There is no respiratory distress noted. HEART/CARDIOVASCULAR: Regular. There is no tachycardia. There is no murmur. ABDOMEN: Abdomen is soft, nontender. Patient has normal bowel sounds. There is no abdominal distention. SKIN: Skin is warm and dry. 2+ pitting edema to the bilateral lower extremities with left greater than right. NEURO: The patient is awake, alert, and oriented. The patient is cooperative. The patient has no focal neurologic deficits. Normal speech. MUSCULOSKELETAL: There is no tenderness or deformity. There is no limitation range of motion. ED Course Vital Signs 09/30/20 09/30/20 15:14 21:52 Temperature 97.8 F Pulse Rate 85 86 Respiratory 20 23 Rate Blood Pressure 124/92 [Left] Blood Pressure 118/82 [Right] O2 Sat by Pulse 96 97 Oximetry KASI score - Kasi Score Age > 65: (0) No Aspirin use within the Past 7 Days: (0) No 3 or more CAD Risk Factors: (0) No 2 or more Angina events in past 24 hrs: (1) Yes Known CAD with more than 50% Stenosis: (0) No Elevated Cardiac Markers: (1) Yes ST Deviation Greater than 0.5mm: (0) No KASI Score: 2 ED Medical Decision Making - Lab Data Result diagrams: 09/30/20 18:04 09/30/20 18:04 Lab Results 09/30/20 09/30/20 09/30/20 Range/Units 18:04 18:04 20:34 WBC 4.3 L (4.5-11.0) K/mm3 RBC 4.42 (3.65-5.03) M/mm3 Hgb 14.2 (11.8-15.2) gm/dl Hct 44.2 (35.5-45.6) % MCV 100 H (84-94) fl MCH 32 (28-32) pg MCHC 32 (32-34) % RDW 17.3 H (13.2-15.2) % Plt Count 158 (140-440) K/mm3 Lymph % (Auto) 19.3 (13.4-35.0) % [place] % (Auto) 10.5 H (0.0-7.3) % Eos % (Auto) 0.8 (0.0-4.3) % Baso % (Auto) 0.5 (0.0-1.8) % Lymph # (Auto) 0.8 L (1.2-5.4) K/mm3 [place] # (Auto) 0.5 (0.0-0.8) K/mm3 Eos # (Auto) 0.0 (0.0-0.4) K/mm3 Baso # (Auto) 0.0 (0.0-0.1) K/mm3 Seg Neutrophils % 68.9 (40.0-70.0) % Seg Neutrophils # 3.0 (1.8-7.7) K/mm3 Sodium 141 (137-145) mmol/L Potassium 3.7 (3.6-5.0) mmol/L Chloride 97.7 L (98-107) mmol/L Carbon Dioxide 29 (22-30) mmol/L Anion Gap 18 mmol/L BUN 32 H (9-20) mg/dL Creatinine 1.7 H (0.8-1.3) mg/dL Estimated GFR 50 ml/min BUN/Creatinine Ratio 19 % Glucose 137 H (75-100) mg/dL Calcium 8.7 (8.4-10.2) mg/dL Magnesium 1.80 (1.7-2.3) mg/dL Total Bilirubin 2.30 H (0.1-1.2) mg/dL AST 22 (5-40) units/L ALT 10 (7-56) units/L Alkaline Phosphatase 66 (35-129) units/L Troponin T 0.082 H 0.077 H (0.00-0.029) ng/mL NT-Pro-B Natriuret Pep 50344 H (0-900) pg/mL Total Protein 7.3 (6.3-8.2) g/dL Albumin 3.9 (3.9-5) g/dL Albumin/Globulin Ratio 1.1 % Triglycerides 55 (2-149) mg/dL Cholesterol 96 (50-199) mg/dL LDL Cholesterol Direct 61 (50-130) mg/dL HDL Cholesterol 32 L (40-59) mg/dL Cholesterol/HDL Ratio 3.00 % - EKG Data -: EKG Interpreted by Me EKG shows normal: sinus rhythm, axis (Left axis deviation), intervals (Slightly prolonged QTC), QRS complexes (Nonspecific intraventricular conduction delay, Q waves to the septal leads), ST-T waves Rate: normal - EKG Data When compared to previous EKG there are: changes noted (Previous EKG from November 2019 did not show intraventricular conduction delay) Interpretation: other (Sinus rhythm at a rate of 87 bpm, left axis deviation, slightly prolonged QTC, Q waves to the septal leads, nonspecific IVCD. No ST elevation AR) - Radiology Data Radiology results: report reviewed, image reviewed interpreted by me: Chest x-ray does not show any acute process. There are no pleural effusions, obvious pneumonia and there is no pneumothorax. No significant cardiomegaly. No widened mediastinum. DUPLEX DOPPLER LOWER EXTREMITY VEINS, BILATERAL INDICATION / CLINICAL INFORMATION: B/L LE swelling. TECHNIQUE: Duplex doppler imaging was performed through the veins of both lower extremities using venous compression and other maneuvers. COMPARISON: None available. FINDINGS: RIGHT COMMON FEMORAL VEIN: Negative. RIGHT FEMORAL VEIN: Negative. RIGHT POPLITEAL VEIN: Negative. RIGHT CALF VEINS: Negative. LEFT COMMON FEMORAL VEIN: Negative. LEFT FEMORAL VEIN: Negative. LEFT POPLITEAL VEIN: Negative. LEFT CALF VEINS: Negative. ADDITIONAL FINDINGS: None. IMPRESSION: 1. No sonographic evidence for DVT in either lower extremity. - Medical Decision Making This patient presents to the emergency department with a complaint of some chest pain, shortness of breath, a mixed dry and productive cough, and bilateral lower extremity swelling. On examination the patient does not appear in any respiratory or acute distress. He does have 2+ pitting edema to the bilateral lower extremities with left appearing larger than right. The patient's chest pain occurred 2 days ago with 2 different short, sharp pains. EKG did not have any morphology consistent with ST elevation myocardial infar ction. Chest x-ray did not show any pneumothorax, pleural effusions, widened mediastinum. Radiology read that there is some type of infiltrate or area to the right lung base that is atelectasis versus pneumonia. For this reason the patient has been placed on an antibiotic. Due to the lower extremity swelling, the patient was sent for a bilateral lower extremity venous Doppler ultrasound that was ultimately negative for DVT. With the swelling, his history of CHF, and the elevated proBNP of about 12,000, the patient appears to have an exacerbation of his CHF and has been given some Lasix for diuresis. The patient's labs also showed some mild renal insufficiency with a GFR of 50, and 2 elevated troponin levels thus far, although they are trending downwards. The first troponin was 0.082 and the second troponin was 0.077. I spoke to the patient about using heparin but he refused the blood thinner as he said that he had a previous history of GI bleeding. He did agree to a full dose aspirin. The patient will be admitted to the hospital for further evaluation and treatment and was accepted for admission by the hospitalist, Dr. Huddleston. Critical Care Time: Yes Critical care time in (mins) excluding proc time.: 35 Critical care attestation.: If time is entered above; I have spent that time in minutes in the direct care of this critically ill patient, excluding procedure time. Critical care time was spent on this patient in doing his initial evaluation, multiple reevaluations, ordering and interpretation of labs and imaging, IV Lasix for diuresis, IV antibiotics, multiple discussions with the patient and discussion with the hospitalist service. Critical Care Time: 35 minutes ED Disposition Clinical Impression: NSTEMI (non-ST elevated myocardial infarction) Acute exacerbation of congestive heart failure Qualifiers: Heart failure type: unspecified Qualified Code(s): I50.9 - Heart failure, unspecified Disposition: OP ADMIT IP TO THIS HOSP Is pt being admited?: Yes Condition: Serious Time of Disposition: 23:10
--- NOTE | 2020-09-30 23:05 | Vascular Lab Report ---
DUPLEX DOPPLER LOWER EXTREMITY VEINS, BILATERAL INDICATION / CLINICAL INFORMATION: B/L LE swelling. TECHNIQUE: Duplex doppler imaging was performed through the veins of both lower extremities using venous reyna santa and other maneuvers. COMPARISON: None available. FINDINGS: RIGHT COMMON FEMORAL VEIN: Negative. RIGHT FEMORAL VEIN: Negative. RIGHT POPLITEAL VEIN: Negative. RIGHT CALF VEINS: Negative. LEFT COMMON FEMORAL VEIN: Negative. LEFT FEMORAL VEIN: Negative. LEFT POPLITEAL VEIN: Negative. LEFT CALF VEINS: Negative. ADDITIONAL FINDINGS: None. IMPRESSION: 1. No sonographic evidence for DVT in either lower extremity. Signer Name: Barry Delarosa MD Signed: 09/30/2020 11:01 PM Workstation Name: [id number]
[2020-09-30] MEDS ORDERED: FUROSEMIDE 20 MG/2 ML INJ IV ONE (23:11)
[2020-09-30] MEDS ORDERED: MORPHINE 4 MG/1 ML INJ IV PRN (23:47)
[2020-09-30] MEDS ORDERED: NITROGLYCERIN 0.4 MG TAB SUBL SL PRN (23:47)
[2020-09-30] MEDS ORDERED: ACETAMINOPHEN 325 MG TAB PO PRN (23:47)
[2020-09-30] MEDS ORDERED: hydrALAZINE 20 MG/1 ML INJ IV PRN (23:49)
[2020-09-30] MEDS ORDERED: ALBUTEROL 2.5 MG/3 ML NEBU IH PRN (23:50)
--- NOTE | 2020-09-30 23:56 | History and Physical Report ---
History of Present Illness Date of examination: 09/30/20 Date of admission: 09/30/20 23:11 Chief complaint: Chest pain Shortness of breath History of present illness: 60-year-old -[place] male with history of CHF, hypertension, hyperlipidemia, sleep apnea was brought to the emergency department from home with a complaint of a 2-day history of intermittent chest pain, shortness of breath, a mixed dry and productive cough, and bilateral lower extremity swe lling. He has not taken anything for symptoms prior to presentation but has been compliant with his home medications. No recent travel or sick contacts at home. The shortness of breath worsens with exertion. Patient follows with Dr. Ortega for cardiology. The patient says that the chest pain occurred when the symptoms first began and he had 2 short, sharp episodes. In the emergency room patient is found to have elevated troponin of 0.082 [place] [address] and patient chest x-ray showed enlargement of the cardiac silhouette opacity in the right lung base which could represent atelectasis or pneumonia Past History Past Medical History: heart failure, hypertension, hyperlipidemia, other (Sleep apnea) Medications and Allergies Allergies Allergy/AdvReac Type Severity Reaction Status Date / Time codeine Allergy Unknown Verified 07/04/19 14:55 meperidine [From Demerol] Allergy Swelling Verified 07/04/19 14:55 Penicillins Allergy Swelling Verified 07/04/19 14:55 Home Medications Medication Instructions Recorded Confirmed Last Taken Type Metoprolol [Lopressor] 25 mg PO DAILY 12/21/19 12/21/19 Unknown History Furosemide [Lasix TAB] 40 mg PO QDAY #30 tablet 12/23/19 Unknown Rx Metoprolol [Lopressor TAB] 25 mg PO DAILY #30 tablet 12/23/19 Unknown Rx Spironolactone [Aldactone] 25 mg PO QDAY #30 tablet 12/23/19 Unknown Rx Valsartan 80 mg PO DAILY #30 tab 12/23/19 12/21/19 Unknown Rx Active Meds: Active Medications Benzonatate (Benzonatate 100 Mg Cap) 100 mg PO ONCE ONE Stop: 09/30/20 23:56 Review of Systems Cardiovascular: chest pain, edema, shortness of breath, dyspnea on exertion Respiratory: cough, cough with sputum, shortness of breath, dyspnea on exertion Exam - Constitutional Vitals: Temp Pulse Resp BP Pulse Ox 97.8 F 86 23 124/92 97 09/30/20 15:14 09/30/20 21:52 09/30/20 21:52 09/30/20 21:52 09/30/20 21:52 General appearance: Present: no acute distress, well-nourished - EENT Eyes: Present: PERRL ENT: hearing intact, clear oral mucosa - Neck Neck: Present: supple, normal ROM - Respiratory Respiratory effort: normal Respiratory: bilateral: rales - Cardiovascular Heart Sounds: Present: S1 & S2. Absent: rub, click - Extremities Extremities: pulses symmetrical, No edema Extremity abnormal: edema, other ( Skin is warm and dry. 2+ pitting edema to the bilateral lower extremities with left greater than right.) Peripheral Pulses: within normal limits - Abdominal General gastrointestinal: Present: soft, non-tender, non-distended, normal bowel sounds Male genitourinary: Present: normal - Integumentary Integumentary: Present: clear, warm, dry - Musculoskeletal Musculoskeletal: gait normal, strength equal bilaterally - Psychiatric Psychiatric: appropriate mood/affect, intact judgment & insight - Neurologic Neurologic: CNII-XII intact, moves all extremities HEART Score - HEART Score EKG: Non-specific Age: 45-65 Risk factors: 1-2 risk factors Troponin: Troponin T 0.077 ng/mL (0.00-0.029) H 09/30/20 20:34 Troponin: > 3x normal limit - Critical Actions Critical Actions: 4-6 pts:12-16.6% risk of adverse cardiac event. Should be admitted Results - Labs CBC & Chem 7: 09/30/20 18:04 09/30/20 18:04 Labs: Laboratory Last Values WBC 4.3 K/mm3 (4.5-11.0) L 09/30/20 18:04 RBC 4.42 M/mm3 (3.65-5.03) 09/30/20 18:04 Hgb 14.2 gm/dl (11.8-15.2) 09/30/20 18:04 Hct 44.2 % (35.5-45.6) 09/30/20 18:04 MCV 100 fl (84-94) H 09/30/20 18:04 MCH 32 pg (28-32) 09/30/20 18:04 MCHC 32 % (32-34) 09/30/20 18:04 RDW 17.3 % (13.2-15.2) H 09/30/20 18:04 Plt Count 158 K/mm3 (140-440) 09/30/20 18:04 Lymph % (Auto) 19.3 % (13.4-35.0) 09/30/20 18:04 [place] % (Auto) 10.5 % (0.0-7.3) H 09/30/20 18:04 Eos % (Auto) 0.8 % (0.0-4.3) 09/30/20 18:04 Baso % (Auto) 0.5 % (0.0-1.8) 09/30/20 18:04 Lymph # (Auto) 0.8 K/mm3 (1.2-5.4) L 09/30/20 18:04 [place] # (Auto) 0.5 K/mm3 (0.0-0.8) 09/30/20 18:04 Eos # (Auto) 0.0 K/mm3 (0.0-0.4) 09/30/20 18:04 Baso # (Auto) 0.0 K/mm3 (0.0-0.1) 09/30/20 18:04 Seg Neutrophils % 68.9 % (40.0-70.0) 09/30/20 18:04 Seg Neutrophils # 3.0 K/mm3 (1.8-7.7) 09/30/20 18:04 Sodium 141 mmol/L (137-145) 09/30/20 18:04 Potassium 3.7 mmol/L (3.6-5.0) 09/30/20 18:04 Chloride 97.7 mmol/L (98-107) L 09/30/20 18:04 Carbon Dioxide 29 mmol/L (22-30) 09/30/20 18:04 Anion Gap 18 mmol/L 09/30/20 18:04 BUN 32 mg/dL (9-20) H 09/30/20 18:04 Creatinine 1.7 mg/dL (0.8-1.3) H 09/30/20 18:04 Estimated GFR 50 ml/min 09/30/20 18:04 BUN/Creatinine Ratio 19 % 09/30/20 18:04 Glucose 137 mg/dL (75-100) H 09/30/20 18:04 Calcium 8.7 mg/dL (8.4-10.2) 09/30/20 18:04 Magnesium 1.80 mg/dL (1.7-2.3) 09/30/20 18:04 Total Bilirubin 2.30 mg/dL (0.1-1.2) H 09/30/20 18:04 AST 22 units/L (5-40) 09/30/20 18:04 ALT 10 units/L (7-56) 09/30/20 18:04 Alkaline Phosphatase 66 units/L (35-129) 09/30/20 18:04 Troponin T 0.077 ng/mL (0.00-0.029) H 09/30/20 20:34 NT-Pro-B Natriuret Pep 46560 pg/mL (0-900) H 09/30/20 18:04 Total Protein 7.3 g/dL (6.3-8.2) 09/30/20 18:04 Albumin 3.9 g/dL (3.9-5) 09/30/20 18:04 Albumin/Globulin Ratio 1.1 % 09/30/20 18:04 Triglycerides 55 mg/dL (2-149) 09/30/20 18:04 Cholesterol 96 mg/dL (50-199) 09/30/20 18:04 LDL Cholesterol Direct 61 mg/dL (50-130) 09/30/20 18:04 HDL Cholesterol 32 mg/dL (40-59) L 09/30/20 18:04 Cholesterol/HDL Ratio 3.00 % 09/30/20 18:04 - Imaging and Cardiology Chest x-ray: report reviewed Assessment and Plan VTE prophylaxis?: Chemical Plan of care discussed with patient/family: Yes - Patient Problems (1) Acute exacerbation of congestive heart failure Current Visit: Yes Status: Acute Qualifiers: Heart failure type: unspecified Qualified Code(s): I50.9 - Heart failure, unspecified Plan to address problem: Admit the patient to the medical floor. Lasix 40 mg IV every 12 hours. Fluid restriction. Maintain input and output. Echocardiogram. Cardiology consult (2) NSTEMI (non-ST elevated myocardial infarction) Current Visit: Yes Status: Acute Plan to address problem: Aspirin 325 mg p.o. daily. Lipitor 40 mg p.o. daily. Nitroglycerin as needed. Due to the serial cardiac enzyme. Echocardiogram cardiology consult (3) Acute respiratory distress Current Visit: No Status: Acute Plan to address problem: Oxygen per nasal cannula 3 L/min. Levaquin 750 mg IV daily. DuoNeb by nebulizer every 4 hours as needed. We do the blood culture and sputum culture. Consult pulmonary if needed (4) CAD (coronary artery disease) Current Visit: No Status: Acute Plan to address problem: Aspirin 325 mg p.o. daily. Lipitor 40 mg p.o. daily. Nitroglycerin as needed. Due to the serial cardiac enzyme. Echocardiogram cardiology consult (5) Pneumonia Current Visit: Yes Status: Acute Plan to address problem: Oxygen per nasal cannula 3 L/min. Levaquin 750 mg IV daily. DuoNeb by nebulizer every 4 hours as needed. We do the blood culture and sputum culture. Consult pulmonary if needed (6) HTN (hypertension) Current Visit: No Status: Acute Plan to address problem: Lisinopril 5 mg p.o. daily. Hydralazine 10 mg every 6 hours as needed we will monitor the blood pressures closely (7) DVT prophylaxis Current Visit: No Status: Acute Plan to address problem: Heparin 5000 units subcu every 8 hours for DVT prophylaxis. Protonix 40 mg p.o. daily for GI prophylaxis. Patient is a full code
[2020-10-01] MEDS: HEPARIN 5,000 UNIT/1 ML VIAL SUB-Q SCH ×2 (05:39→05:46)
[2020-10-01] MEDS ORDERED: FUROSEMIDE 40 MG/4 ML INJ IV SCH (06:00)
[2020-10-01 06:11] LABS: Basophils % (Auto) 0.5 % (0.0-1.8); Hemoglobin 13.7 gm/dl (11.8-15.2); Lymphocytes # (Auto) 0.8 K/mm3 (1.2-5.4); Lymphocytes % (Auto) 20.8 % (13.4-35.0); Mean Corpuscular HGB Conc 32 % (32-34); Mean Corpuscular Volume 99 fl (84-94); Monocytes # (Auto) 0.5 K/mm3 (0.0-0.8); Monocytes % (Auto) 12.6 % (0.0-7.3); Platelet Count 143 K/mm3 (140-440); Red Blood Count 4.35 M/mm3 (3.65-5.03); Red Cell Distribution Width 17.2 % (13.2-15.2)
[2020-10-01 06:33] LABS: Calcium 8.8 mg/dL (8.4-10.2)
--- NOTE | 2020-10-01 09:10 | Consultation ---
History of Present Illness Consult date: 10/01/20 Requesting physician: IVAN REYNOLDS Consult reason: congestive heart failure, other (NSTEMI) History of present illness: Primary Senior Android Developer: Dagoberto Barker Pt is a 60-year-old AA male with hx of NICMP (no device yet), chronic HFrEF, and CKD, who presented with complaints of progressively worsening SOB/PAGE over the past several weeks. Pt also reports significant BLE edema. He denies any pain in his legs. In addition, he reports palpitations that sometimes wake him up from sleep. He also reports a "prickling" sensation in chest that radiates from left to right and back to left. Episodes last a few seconds. No aggravating or relieving factors. No additional cardiac complaints reported. BNP elevated upon arrival. CXR reveals cardiomegaly and mild vascular congestion. Pt states he has been compliant with his home medications. Echo 08/17/2020 - dilated LV and LA, severely reduced LV sys fxn with diffuse severe hypokinesis, EF 10-15%, grade 2 diastolic dysfxn, normal RV sys fxn, no significant valvular abnormalities, small pericardial effusion w/no evidence of tamponade, 2.5 x 1.8 cm mass adherent to apical wall of LV. Stress test 04/2019 - abnormal exercise stress test but negative for ischemia, clinically negative with no chest pain, non-diagnostic stress ECG, hypertensive BP response to stress, dyspnea developed during stress, exercise tolerance was fair, HR response was adequate, prognostically low-risk study, pulmonary disease pattern. LHC/RHC 04/2018 - non-obstructive CAD, no evidence of aortic stenosis, markedly elevated left sided filling pressure, severe pulm HTN w/normal transpulmonary gradient. Past History Past Medical History: heart failure, hypertension, hyperlipidemia, other (ETTA) Medications and Allergies Allergies Allergy/AdvReac Type Severity Reaction Status Date / Time codeine Allergy Unknown Verified 07/04/19 14:55 meperidine [From Demerol] Allergy Swelling Verified 07/04/19 14:55 Penicillins Allergy Swelling Verified 07/04/19 14:55 Home Medications Medication Instructions Recorded Confirmed Last Taken Type Metoprolol [Lopressor] 25 mg PO DAILY 12/21/19 12/21/19 Unknown History Furosemide [Lasix TAB] 40 mg PO QDAY #30 tablet 12/23/19 Unknown Rx Metoprolol [Lopressor TAB] 25 mg PO DAILY #30 tablet 12/23/19 Unknown Rx Spironolactone [Aldactone] 25 mg PO QDAY #30 tablet 12/23/19 Unknown Rx Valsartan 80 mg PO DAILY #30 tab 12/23/19 12/21/19 Unknown Rx Active Meds: Active Medications Acetaminophen (Acetaminophen 325 Mg Tab) 650 mg PO Q6H PRN PRN Reason: Pain, Mild (1-3) Last Admin: 10/01/20 02:28 Dose: 650 mg Documented by: Albuterol (Albuterol 2.5 Mg/3 Ml Nebu) 2.5 mg IH Q4HRT PRN PRN Reason: Shortness Of Breath Aspirin (Aspirin Ec 325 Mg Tab) 325 mg PO QDAY [facility] Atorvastatin Calcium (Atorvastatin 40 Mg Tab) 40 mg PO QHS [facility] Furosemide (Furosemide 40 Mg/4 Ml Inj) 40 mg IV BID@0600,1800 [facility] Last Admin: 10/01/20 05:39 Dose: 40 mg Documented by: Heparin Sodium (Porcine) (Heparin 5,000 Unit/1 Ml Vial) 5,000 unit SUB-Q Q8HR [facility] Last Admin: 10/01/20 05:46 Dose: Not Given Documented by: Hydralazine HCl (Hydralazine 20 Mg/1 Ml Inj) 10 mg IV Q6H PRN PRN Reason: htn Levofloxacin/Dextrose (Levaquin 750mg/150ml) 750 mg in 150 mls @ 100 mls/hr IV Q24H [facility]; Protocol Lisinopril (Lisinopril 5 Mg Tab) 5 mg PO QDAY [facility] Morphine Sulfate (Morphine 4 Mg/1 Ml Inj) 2 mg IV Q5MIN PRN PRN Reason: Chest Pain Nitroglycerin (Nitroglycerin 0.4 Mg Tab Subl) 0.4 mg SL Q5M PRN PRN Reason: Chest Pain Pantoprazole Sodium (Pantoprazole 40 Mg Tab) 40 mg PO QDAC [facility] Sodium Chloride (Sodium Chloride 0.9% 10 Ml Flush Syringe) 10 ml IV PRN PRN PRN Reason: LINE FLUSH Tramadol HCl (Tramadol 50 Mg Tab) 50 mg PO Q6H PRN PRN Reason: Pain, Moderate (4-6) Review of Systems Constitutional: no fever, no chills Ears, nose, mouth and throat: no nasal congestion, no sore throat Cardiovascular: orthopnea, edema, shortness of breath, dyspnea on exertion, paroxysmal nocturnal dyspnea, no chest pain, no palpitations, no syncope, no lightheadedness, no claudication Respiratory: shortness of breath, dyspnea on exertion, no cough Gastrointestinal: no abdominal pain, no nausea, no vomiting, no diarrhea, no constipation Genitourinary Male: no dysuria, no flank pain Musculoskeletal: no neck stiffness, no neck pain, no myalgias Integumentary: no rash, no wounds Neurological: no head injury, no paralysis, no weakness, no parathesias, no numbness, no tingling, no seizures, no syncope, no vertigo, no headaches Endocrine: no cold intolerance, no heat intolerance Hematologic/Lymphatic: no easy bruising, no easy bleeding Allergic/Immunologic: no anaphylaxis Physical Examination Last Vital Signs Temp 98.1 F 10/01/20 08:00 Pulse 91 H 10/01/20 08:00 Resp 18 10/01/20 08:00 BP 141/90 10/01/20 08:00 Pulse Ox 95 10/01/20 08:00 General appearance: no acute distress HEENT: Positive: EOMI, Normocephaly, Mucus Membranes Moist Neck: Positive: neck supple, trachea midline, JVD/HJR (mild) Cardiac: Positive: Reg Rate and Rhythm, S1/S2. Negative: Audible Murmur Lungs: Positive: Decreased Breath Sounds (bases) Neuro: Positive: Grossly Intact Abdomen: Positive: Soft. Negative: Tender Skin: Negative: Rash Musculoskeletal: No Pain Extremities: Present: lower extr. pulses, +2 Edema (BLE) Results 10/01/20 05:02 10/01/20 05:02 Cardiac Enzymes 09/30/20 Range/Units 18:04 AST 22 (5-40) units/L Lipids 09/30/20 Range/Units 18:04 Triglycerides 55 (2-149) mg/dL Cholesterol 96 (50-199) mg/dL HDL Cholesterol 32 L (40-59) mg/dL Cholesterol/HDL Ratio 3.00 % CBC 09/30/20 10/01/20 Range/Units 18:04 05:02 WBC 4.3 L 3.9 L (4.5-11.0) K/mm3 RBC 4.42 4.35 (3.65-5.03) M/mm3 Hgb 14.2 13.7 (11.8-15.2) gm/dl Hct 44.2 43.0 (35.5-45.6) % Plt Count 158 143 (140-440) K/mm3 Lymph # (Auto) 0.8 L 0.8 L (1.2-5.4) K/mm3 [place] # (Auto) 0.5 0.5 (0.0-0.8) K/mm3 Eos # (Auto) 0.0 0.0 (0.0-0.4) K/mm3 Baso # (Auto) 0.0 0.0 (0.0-0.1) K/mm3 Comprehensive Metabolic Panel 09/30/20 10/01/20 Range/Units 18:04 05:02 Sodium 141 140 (137-145) mmol/L Potassium 3.7 3.8 (3.6-5.0) mmol/L Chloride 97.7 L 95.7 L (98-107) mmol/L Carbon Dioxide 29 27 (22-30) mmol/L BUN 32 H 36 H (9-20) mg/dL Creatinine 1.7 H 1.9 H (0.8-1.3) mg/dL Glucose 137 H 145 H (75-100) mg/dL Calcium 8.7 8.8 (8.4-10.2) mg/dL AST 22 (5-40) units/L ALT 10 (7-56) units/L Alkaline Phosphatase 66 (35-129) units/L Total Protein 7.3 (6.3-8.2) g/dL Albumin 3.9 (3.9-5) g/dL - Imaging and Cardiology Echo: report reviewed (08/17/2020 - dilated LV and LA, severely reduced LV sys fxn with diffuse severe hypokinesis, EF 10-15%, grade 2 diastolic dysfxn, normal RV sys fxn, no significant valvular abnormalities, small pericardial effusion w/no evidence of tamponade, 2.5 x 1.8 cm mass adherent to apical wall of LV) Cardiac cath: report reviewed ([facility] 04/2018 - non-obstructive CAD, no evidence of aortic stenosis, markedly elevated left sided filling pressure, severe pulm HTN w/normal transpulmonary gradient) EKG: report reviewed, image reviewed - EKG Interpretation EKG: no acute changes EKG interpretations - Telemetry EKG Rhythm: Sinus Rhythm - EKG Sinus rhythms and dysrhythmias: sinus rhythm Repolarization changes or abnormalities: nonspecific abnormality, ST segment, and/or T wave Myocardial infarction: anterior IN (old age or i, lateral IN (old age or in Assessment and Plan Will switch to IV Bumex, as pt is on 2mg PO Bumex daily as an outpatient. Continue Aldactone. No ACEI/ARB due to intolerance. Planning for trial of Entresto as an outpatient. Continue home Toprol. Await LifeVest prior to discharge. Plan for outpatient eval for ICD implantation. Resume Coumadin for tx of apical thrombus. Suspect mild troponin elevation in the setting of acutely decompensated HF & GLORIA. No plans for ischemic eval. Pt seen in conjunction with Dr. Andino, who agrees with the assessment and plan of care. - Patient Problems (1) Atypical chest pain Current Visit: Yes Status: Resolved (2) Pneumonia Current Visit: Yes Status: Suspected (3) Acute on chronic HFrEF (heart failure with reduced ejection fraction) Current Visit: Yes Status: Acute (4) NICM (nonischemic cardiomyopathy) Current Visit: Yes Status: Chronic (5) NSVT (nonsustained ventricular tachycardia) Current Visit: Yes Status: Acute (6) Acute kidney injury superimposed on CKD Current Visit: Yes Status: Acute (7) Left ventricular apical thrombus Current Visit: Yes Status: Chronic (8) ETTA (obstructive sleep apnea) Current Visit: Yes Status: Chronic (9) HTN (hypertension) Current Visit: Yes Status: Chronic Qualifiers: Hypertension type: essential hypertension Qualified Code(s): I10 - Essential (primary) hypertension (10) DM2 (diabetes mellitus, type 2) Current Visit: Yes Status: Chronic (11) Nonobstructive atherosclerosis of coronary artery Current Visit: Yes Status: Chronic (12) NSTEMI (non-ST elevated myocardial infarction) Current Visit: Yes Status: Acute Plan to address problem: Type 2
[2020-10-01] MEDS: METOPROLOL SUCCINATE XL 50 MG TAB PO SCH (09:50)
[2020-10-01] MEDS: ASPIRIN 81 MG TAB CHEW PO SCH (09:50)
[2020-10-01] MEDS: PANTOPRAZOLE 40 MG TAB PO SCH (09:51)
[2020-10-01] MEDS: SPIRONOLACTONE 25 MG TAB PO SCH (09:51)
[2020-10-01] MEDS ORDERED: ASPIRIN EC 325 MG TAB PO SCH (10:00)
[2020-10-01] MEDS ORDERED: LISINOPRIL 5 MG TAB PO SCH (10:00)
--- NOTE | 2020-10-01 10:20 | Electrocardiograph Report ---
[facility] Test Date: 2020-09-30 Test Time: 15:39:06 Pat Name: CATALINA BARTON Department: Room: A469 1 Gender: M Pad Cutter: JACOBO : 1960 Requested By: LAURENCE KEE Order Number: [id number] Reading MD: Bentley Andino Measurements Intervals [place] Rate: 87 P: 112 TN: 159 QRS: 0 QRSD: 127 T: QT: 434 QTc: 523 Interpretive Statements Sinus rhythm Nonspecific intraventricular conduction delay Low voltage in limb leads noted. Probable anteroseptal infarct, old Nonspecific repol abnormality, lateral leads No previous ECG available for comparison Electronically Signed On 10-01-2020 10:20:07 EDT by Bentley Andino
--- NOTE | 2020-10-01 10:25 | Electrocardiograph Report ---
[facility] Test Date: 2020-10-01 Test Time: 00:27:51 Pat Name: CATALINA BARTON Department: Room: A469 1 Gender: M Employment Counselor: LEONARDO : 1960 Requested By: LUCIA WEI Order Number: [id number] Reading MD: Bentley Andino Measurements Intervals [place] Rate: 87 P: 84 VA: 173 QRS: 224 QRSD: 115 T: QT: 434 QTc: 523 Interpretive Statements Sinus rhythm Nonspecific intraventricular conduction delay Low voltage with right axis deviation Consider anterior infarct Prolonged QT interval No significant change from 09/30/2020. Electronically Signed On 10-01-2020 10:25:04 EDT by Bentley Andino
--- NOTE | 2020-10-01 13:25 | Progress Note ---
Assessment and Plan - Patient Problems (1) Acute kidney injury superimposed on CKD Current Visit: Yes Status: Acute Plan to address problem: Patient KIKI is on hold secondary to chronic kidney disease stage III-IV. Follow-up with nephrology as outpatient. Continue to hold KIKI low-sodium diet. Avoid nephrotoxic agents. (2) Acute on chronic HFrEF (heart failure with reduced ejection fraction) Current Visit: Yes Status: Acute Plan to address problem: Patient with ejection fraction of 10 to 20%. Long discussion with patient about awaiting ICD. For ejection fraction less than 30%. Patient stated he was not aware but does understand why this will be done. We will continue diuresis now. He does understand why echocardiogram was discontinued since he had one last month which showed the present ejection fraction of 10 to 15%. Continue beta-sol. Hold KIKI continue diuretic with Bumex. It was changed to Bumex because patient was on Bumex prior to admission and at home. (3) Acute respiratory failure Current Visit: Yes Status: Acute Plan to address problem: Actually resolved with initial diuresis. We will continue diuresis follow-up serial chest x-ray. When resolved can discharge. (4) NSTEMI (non-ST elevated myocardial infarction) Current Visit: Yes Status: Acute Plan to address problem: Secondary to chronic kidney disease. Has nonischemic cardiomyopathy via catheterization. Cardiology aware. Consider if patient will require additional stress test. (5) DM2 (diabetes mellitus, type 2) Current Visit: Yes Status: Chronic Plan to address problem: Fairly well controlled. Will follow with sliding scale insulin. Has not used anything at home. (6) HTN (hypertension) Current Visit: Yes Status: Chronic Qualifiers: Hypertension type: essential hypertension Qualified Code(s): I10 - Essential (primary) hypertension Plan to address problem: At present remains well controlled on current beta-sol. Hold KIKI inhibitor. Hydralazine as needed. (7) Left ventricular apical thrombus Current Visit: Yes Status: Chronic Plan to address problem: Left apical thrombus. Will resume Coumadin. Follow-up PT/INR. (8) Nonobstructive atherosclerosis of coronary artery Current Visit: Yes Status: Chronic (9) ETTA (obstructive sleep apnea) Current Visit: Yes Status: Chronic Plan to address problem: Stable. CPAP at night. (10) Pneumonia Current Visit: Yes Status: Suspected Plan to address problem: Patient being treated empirically with Levaquin. Follow-up serial chest x-ray for resolution. (11) DVT prophylaxis Current Visit: No Status: Acute (12) Obesity (BMI 30.0-34.9) Current Visit: No Status: Acute Plan to address problem: Morbid obesity. Suggest decreased caloric intake. Increase exercise tolerance when tolerated. Subjective Date of service: 10/01/20 Principal diagnosis: CHF exacerbation acute respiratory failure. Interval history: 58-year-old male with a history of congestive heart failure, hypertension, hyperlipidemia, sleep apnea presented with a 1 hour episode of chest pain associated with shortness of breath cough and acute lower extremity edema. Patient was brought in and ruled out for DVT. Treated by Dr. Taylor Holden heart. Was noted to have normal EKG however elevated troponin at 0.082 and a BNP of greater than 12,000. Patient was admitted for acute hypoxemic respiratory failure secondary to acute congestive heart failure. Patient at present resting comfortably sitting in chair. Voices concerns over miscommunication from his last admission. All questions and concerns answered to patient's satisfaction. Patient relates being billed last admission for treatment services that could have been expedited. At present wants to go home. Did inform patient about the significance of his heart failure and whether this can be treated home. Echocardiogram was discontinued by cardiology secondary to patient had a recent echo on 08/17/2020 which showed ejection fraction of 10 to 15%. Objective - Constitutional Vitals: Vital Signs - 12hr 10/01/20 10/01/20 10/01/20 01:50 04:27 05:34 Temperature 97.6 F 97.6 F Pulse Rate 88 89 85 Respiratory 20 20 Rate Blood Pressure 131/94 115/90 O2 Sat by Pulse 96 96 Oximetry 10/01/20 10/01/20 07:00 08:00 Temperature 98.1 F Pulse Rate 91 H Respiratory 20 18 Rate Blood Pressure 141/90 O2 Sat by Pulse 96 95 Oximetry General appearance: Present: no acute distress - EENT Eyes: PERRL, EOM intact ENT: hearing intact, clear oral mucosa - Neck Neck: supple, normal ROM - Respiratory Respiratory: bilateral: rhonchi - Cardiovascular Rhythm: regular Heart Sounds: Present: S1 & S2. Absent: gallop, rub Extremity abnormal: edema, other (+3-4 pitting edema.) - Gastrointestinal General gastrointestinal: Present: soft, non-tender, non-distended, normal bowel sounds, other (Obese soft minimal ascites) - Musculoskeletal Musculoskeletal: 1, strength equal bilaterally - Neurologic Neurologic: moves all extremities - Psychiatric Psychiatric: memory intact, appropriate mood/affect, intact judgment & insight - Labs CBC & Chem 7: 10/01/20 05:02 10/01/20 05:02 Labs: Abnormal lab results 09/30/20 09/30/20 09/30/20 Range/Units 18:04 18:04 20:34 WBC 4.3 L (4.5-11.0) K/mm3 MCV 100 H (84-94) fl RDW 17.3 H (13.2-15.2) % [place] % (Auto) 10.5 H (0.0-7.3) % Lymph # (Auto) 0.8 L (1.2-5.4) K/mm3 Chloride 97.7 L (98-107) mmol/L BUN 32 H (9-20) mg/dL Creatinine 1.7 H (0.8-1.3) mg/dL Glucose 137 H (75-100) mg/dL Total Bilirubin 2.30 H (0.1-1.2) mg/dL Troponin T 0.082 H 0.077 H (0.00-0.029) ng/mL NT-Pro-B Natriuret Pep 25404 H (0-900) pg/mL HDL Cholesterol 32 L (40-59) mg/dL 09/30/20 10/01/20 10/01/20 Range/Units 22:54 05:02 05:02 WBC 3.9 L (4.5-11.0) K/mm3 MCV 99 H (84-94) fl RDW 17.2 H (13.2-15.2) % [place] % (Auto) 12.6 H (0.0-7.3) % Lymph # (Auto) 0.8 L (1.2-5.4) K/mm3 Chloride 95.7 L (98-107) mmol/L BUN 36 H (9-20) mg/dL Creatinine 1.9 H (0.8-1.3) mg/dL Glucose 145 H (75-100) mg/dL Total Bilirubin (0.1-1.2) mg/dL Troponin T 0.106 H* D (0.00-0.029) ng/mL NT-Pro-B Natriuret Pep (0-900) pg/mL HDL Cholesterol (40-59) mg/dL 10/01/20 Range/Units 05:02 WBC (4.5-11.0) K/mm3 MCV (84-94) fl RDW (13.2-15.2) % [place] % (Auto) (0.0-7.3) % Lymph # (Auto) (1.2-5.4) K/mm3 Chloride (98-107) mmol/L BUN (9-20) mg/dL Creatinine (0.8-1.3) mg/dL Glucose (75-100) mg/dL Total Bilirubin (0.1-1.2) mg/dL Troponin T 0.084 H D (0.00-0.029) ng/mL NT-Pro-B Natriuret Pep (0-900) pg/mL HDL Cholesterol (40-59) mg/dL HEART Score - HEART Score EKG: Non-specific Age: 45-65 Risk factors: 1-2 risk factors Troponin: Troponin T 0.084 ng/mL (0.00-0.029) H D 10/01/20 05:02 Troponin: > 3x normal limit - Critical Actions Critical Actions: 4-6 pts:12-16.6% risk of adverse cardiac event. Should be admitted
[2020-10-01 14:12] LABS: INR 1.52 (0.87-1.13)
[2020-10-01] MEDS ORDERED: WARFARIN 5 MG TAB PO SCH (17:00)
[2020-10-01] MEDS: BUMETANIDE 1 MG/4 ML INJ IV SCH (17:03)
[2020-10-01] MEDS ORDERED: BUMETANIDE 1 MG/4 ML INJ IV SCH (18:00)
[2020-10-01] MEDS ORDERED: guaiFENesin 100 MG/5 ML ORAL LIQD PO PRN (21:53)
[2020-10-02] MEDS ORDERED: PE/MO/PET,WH 10 APPLIC/28 GM TUBE PR PRN (01:37)
[2020-10-02] MEDS: traMADol 50 MG TAB PO PRN ×2 (01:41→07:57)
[2020-10-02 05:42] LABS: INR 1.62 (0.87-1.13)
[2020-10-02 05:50] LABS: Calcium 8.5 mg/dL (8.4-10.2)
[2020-10-02] MEDS: BUMETANIDE 1 MG/4 ML INJ IV SCH (06:10)
[2020-10-02] MEDS: PANTOPRAZOLE 40 MG TAB PO SCH (07:57)
--- NOTE | 2020-10-02 08:20 | XRay Report ---
CHEST PA AND LATERAL VIEWS INDICATION: sob. COMPARISON: 09/30/2020 FINDINGS: Support devices: None. Heart: Enlarged, unchanged. Lungs/Pleura: Right basilar airspace disease persists. Left lung appears clear. IMPRESSION: 1. No significant change since the exam from 2 days prior. Signer Name: Jim Salguero MD Signed: 10/02/2020 8:16 AM Workstation Name: [id number]
[2020-10-02] MEDS: SPIRONOLACTONE 25 MG TAB PO SCH (10:04)
[2020-10-02] MEDS: ASPIRIN 81 MG TAB CHEW PO SCH (10:04)
[2020-10-02] MEDS: METOPROLOL SUCCINATE XL 50 MG TAB PO SCH (10:04)
[2020-10-02 10:43] VITALS: BP 108/77
--- NOTE | 2020-10-02 10:49 | Discharge Summary ---
Providers - Providers Date of Admission: 09/30/20 23:11 Date of discharge: 10/02/20 Attending physician: BROOKLYN NAVARRO 09/30/20 Consult to Cardiac Rehabilitation [CONS] Routine Reason For Exam: Phase I 09/30/20 23:12 Consult to Cardiology [CONS] Routine Consulting Provider: RUT MORELAND Reason For Exam: CHF, NSTEMI Primary care physician: SANAZ KENNY Hospitalization Condition: Fair Pertinent studies: Echo 08/17/2020 - dilated LV and LA, severely reduced LV sys fxn with diffuse severe hypokinesis, EF 10-15%, grade 2 diastolic dysfxn, normal RV sys fxn, no significant valvular abnormalities, small pericardial effusion w/no evidence of tamponade, 2.5 x 1.8 cm mass adherent to apical wall of LV. Stress test 04/2019 - abnormal exercise stress test but negative for ischemia, clinically negative with no chest pain, non-diagnostic stress ECG, hypertensive BP response to stress, dyspnea developed during stress, exercise tolerance was fair, HR response was adequate, prognostically low-risk study, pulmonary disease pattern. LHC/RHC 04/2018 - non-obstructive CAD, no evidence of aortic stenosis, markedly elevated left sided filling pressure, severe pulm HTN w/normal transpulmonary gradient. Hospital course: 58-year-old male with a history of congestive heart failure, hypertension, hyperlipidemia, sleep apnea presented with a 1 hour episode of chest pain associated with shortness of breath cough and acute lower extremity edema. Patient was brought in and ruled out for DVT. Treated by Dr. Taylor [facility]. Was noted to have normal EKG however elevated troponin at 0.082 and a BNP of greater than 12,000. Patient was admitted for acute hypoxemic respiratory failure secondary to acute congestive heart failure. Patient at present resting comfortably sitting in chair. Voices concerns over miscommunication from his last admission. All questions and concerns answered to patient's satisfaction. Patient relates being billed last admission for treatment services that could have been expedited. At present wants to go home. Did inform patient about the significance of his heart failure and whether this can be treated home. Echocardiogram was discontinued by cardiology secondary to patient had a recent echo on 08/17/2020 which showed ejection fraction of 10 to 15%. Patient currently hemodynamically stable heart failure fairly well controlled. No arrhythmias noted today. Patient has received LifeVest stable for discharge. Follow-up immediately Dr. Brandon Copeland heart. Disposition: DC-01 TO HOME OR SELFCARE Final Discharge Diagnosis (Prints w/discharge instructions): chf - Discharge Diagnoses (1) Acute kidney injury superimposed on CKD Status: Acute Comment: Resolved. (2) Acute on chronic HFrEF (heart failure with reduced ejection fraction) Status: Acute Comment: Patient fair control of congestive heart failure. Able to walk around without oxygen. Significant improvement in lower extremity edema still has refractory edema. Patient has received a LifeVest stable for discharge and follow-up with cardiology for implantation of ICD (3) Acute respiratory failure Status: Acute (4) NSTEMI (non-ST elevated myocardial infarction) Status: Acute (5) DM2 (diabetes mellitus, type 2) Status: Chronic (6) HTN (hypertension) Status: Chronic Qualifiers: Hypertension type: essential hypertension Qualified Code(s): I10 - Essential (primary) hypertension (7) Left ventricular apical thrombus Status: Chronic Comment: Resume Coumadin. (8) Nonobstructive atherosclerosis of coronary artery Status: Chronic (9) ETTA (obstructive sleep apnea) Status: Chronic Comment: Resume CPAP (10) Pneumonia Status: Suspected Comment: We will continue treatment with pneumonia with Levaquin 500 mg daily to complete 7 days. Patient aware he needs to follow-up with primary care physician and Dr. Hudson for follow-up chest x-ray to ensure resolution of pneumonia versus atelectasis. Appears to be atelectasis at this point. No fever no white count no chills no productive cough. (11) DVT prophylaxis Status: Acute (12) Obesity (BMI 30.0-34.9) Status: Acute Comment: Has been educated about weight loss options. Decrease caloric intake. Core Measure Documentation - Palliative Care Palliative Care/ Comfort Measures: Not Applicable - Core Measures Any of the following diagnoses?: heart failure - Heart Failure Discharge Requirements KIKI/ARB for LVSD if EF <40%: Yes Beta sol at discharge: Yes Exam - Constitutional Vitals: Temp Pulse Resp BP Pulse Ox 98.4 F 85 18 108/77 95 10/02/20 07:54 10/02/20 07:54 10/02/20 07:54 10/02/20 07:54 10/02/20 07:54 General appearance: Present: no acute distress, well-nourished - EENT Eyes: Present: PERRL ENT: hearing intact, clear oral mucosa - Neck Neck: Present: supple, normal ROM - Respiratory Respiratory effort: normal Respiratory: bilateral: CTA - Cardiovascular Heart Sounds: Present: S1 & S2. Absent: rub, click - Extremities Extremities: pulses symmetrical, No edema Peripheral Pulses: within normal limits - Abdominal General gastrointestinal: Present: soft, non-tender, non-distended, normal bowel sounds Male genitourinary: Present: normal - Integumentary Integumentary: Present: clear, warm, dry - Musculoskeletal Musculoskeletal: gait normal, strength equal bilaterally - Psychiatric Psychiatric: appropriate mood/affect, intact judgment & insight - Neurologic Neurologic: CNII-XII intact, moves all extremities Plan Activity: no restrictions Diet: low salt, diabetic Special Instructions: restrict fluid intake to (1.5 L), no heavy lifting, home health RN Follow up with: SANAZ KENNY MD [Primary Care Provider] - 3-5 Days Forms: Warfarin Discharge Instruction Prescriptions: Spironolactone [Aldactone] 25 mg PO QDAY #30 tablet Furosemide [Lasix TAB] 40 mg PO QDAY #30 tablet Metoprolol [Lopressor TAB] 25 mg PO DAILY #30 tablet traMADoL [Ultram 50 MG tab] 50 mg PO Q6H PRN #60 tablet PRN Reason: Pain, Moderate (4-6) Valsartan 80 mg PO DAILY #30 tab
--- NOTE | 2020-10-02 15:58 | Event Note ---
Date: 10/02/20 [facility] Pt was seen by our group yesterday for acutely decompensated HF (EF approximately 10%). He was very adamant that he wanted to leave yesterday. I explained to him the severity of his illness. I recommended IV diuresis for at least a few days; however, pt stated that he could manage at home with PO Bumex. After a long discussion, he agreed to stay at the very least overnight. Pt was however discharged prior to assessment today. Of note, multiple detailed conversations have been held with pt in the past about his cardiac issues, and multiple discussions held (both as an inpatient and outpatient) regarding the need for a LifeVest and long-term ICD. Pt was agreeable this admission to proceed with LifeVest. Order submitted to [facility] yesterday. Unsure if pt was fitted prior to discharge. Will schedule outpatient follow-up for pt to see Dr. Barker within 1 week ([phone]). HERSON MCINTYRE MD / MARIA ELENA MARKS NP
--- NOTE | 2020-10-04 10:35 | Electrocardiograph Report ---
[facility] Test Date: 2020-10-01 Test Time: 16:01:22 Pat Name: CATALINA BARTON Department: Room: A469 1 Gender: M [employer] Att[employer]: TS : 1960 Requested By: LUCIA WEI Order Number: [id number] Reading MD: Jesus Alberto Eli Measurements Intervals Howe Rate: 83 P: 81 ID: [id number] QRS: 231 QRSD: 119 T: QT: 455 QTc: 535 Interpretive Statements Sinus rhythm Multiple ventricular premature complexes Left atrial enlargement Nonspecific intraventricular conduction delay Low voltage with right axis deviation Consider anterior infarct Prolonged QT interval Compared to ECG 10/01/2020 00:27:51 Ventricular premature complex(es) now present Atrial abnormality now present Myocardial infarct finding still present Electronically Signed On 10-04-2020 10:35:31 EDT by Jesus Alberto Eli
== END 2020-10-02 14:15 | disposition home or self-care (01) | DRG 280 ==
LOC: ED 15:07 → 4A 23:11
PROVIDERS: ADMIT Hospitalist; ATTEND Internal Medicine
DX: I13.0 Hypertensive heart and chronic kidney disease with heart failure and stage 1 through stage 4 chronic kidney disease, or unspecified chronic kidney disease (principal); I21.4 Non-ST elevation (NSTEMI) myocardial infarction; J18.9 Pneumonia, unspecified organism; I50.23 Acute on chronic systolic (congestive) heart failure; J96.00 Acute respiratory failure, unspecified whether with hypoxia or hypercapnia; N17.9 Acute kidney failure, unspecified; E78.5 Hyperlipidemia, unspecified; E78.00 Pure hypercholesterolemia, unspecified; I42.8 Other cardiomyopathies; G47.33 Obstructive sleep apnea (adult) (pediatric); N18.30 Chronic kidney disease, stage 3 unspecified; E11.22 Type 2 diabetes mellitus with diabetic chronic kidney disease; E66.9 Obesity, unspecified; I25.10 Atherosclerotic heart disease of native coronary artery without angina pectoris; J44.9 Chronic obstructive pulmonary disease, unspecified; Z79.899 Other long term (current) drug therapy; Z68.30 Body mass index [BMI] 30.0-30.9, adult; Z88.5 Allergy status to narcotic agent; Z88.0 Allergy status to penicillin; Z88.8 Allergy status to other drugs, medicaments and biological substances; Z79.891 Long term (current) use of opiate analgesic; Z79.01 Long term (current) use of anticoagulants
CPT/HCPCS: 36415; 71046; 80048; 80053; 80061; 83735; 83880; 84484; 85025; 85610; 87641; 93005; 93970; 96365; 96375; G0378; A9270-GY; J1644; J1940; J1956